=== PATIENT | male | born 1930 | race Caucasian/White ===

== ENCOUNTER 2018-06-02 16:06 | Inpatient (IN) ==
[2018-06-02] MEDS ORDERED: NS 1,000 ML IV ONE (16:32)
[2018-06-02] MEDS ORDERED: NS 1,000 ML ONE (16:34)
--- NOTE | 2018-06-02 16:39 | PROVIDER DOCUMENTATION ---
HPI-General Adult - General Chief Complaint: Altered Mental Status Stated Complaint: SHAKING ALL OVER? Time Seen by Provider: 06/02/18 16:10 Source: EMS (patient is not a reliable historian) Allergies/Adverse Reactions: Patient Allergies Allergy/AdvReac Type Severity Reaction Status Date / Time No Known Allergies Allergy Verified 06/02/18 21:06 Home Medications: Home Medication List Medication Instructions Recorded Confirmed Last Taken Type Aspirin EC 81 mg PO DAILY 04/15/17 06/02/18 06/02/18 08:00 History Levetiracetam 750 mg PO BID 04/15/17 06/02/18 06/02/18 20:00 History Memantine HCl 5 mg PO BID 04/15/17 06/02/18 06/02/18 20:00 History Metoprolol Succinate E.r. [Toprol 25 mg PO QAM 04/15/17 06/02/18 06/02/18 08:00 History Xl] Rivaroxaban [Xarelto] 20 mg PO HS 04/15/17 06/02/18 06/02/18 20:00 History Sennosides/Docusate Sodium 1 tab PO BID 04/15/17 06/02/18 06/02/18 20:00 History [Senna-S Tablet] Fluconazole [Diflucan] 100 mg PO DAILY #7 tab 04/25/17 Unknown Rx Tramadol [Ultram] 50 mg PO Q4H PRN PRN #30 tab 04/25/17 06/02/18 Unknown Rx Acetaminophen [Tylenol] 1 tab PO Q4HR PRN 06/02/18 06/02/18 Unknown History Ascorbic Acid [Vitamin C] 1 tab PO QAM 06/02/18 06/02/18 06/02/18 08:00 History Cholecalciferol (Vitamin D3) 1 tab PO QAM 06/02/18 06/02/18 06/02/18 08:00 History [Vitamin D3] Cyanocobalamin (Vitamin B-12) 1,000 mcg PO QAM 06/02/18 06/02/18 06/02/18 08:00 History [Vitamin B12] Docusate Sodium [Stool Softener] 1 cap PO DAILY PRN 06/02/18 06/02/18 Unknown History Fluticasone 50 Mcg Nasal [place] 1 - 2 sprays GELY QAM 06/02/18 06/02/18 06/02/18 08:00 History [Flonase] Furosemide [Lasix] 1 tab PO QAM 06/02/18 06/02/18 06/02/18 08:00 History Loperamide [Imodium] 2 cap PO DIRECTED PRN 06/02/18 06/02/18 Unknown History Magnesium Hydroxide [Milk of 30 ml PO DAILY PRN PRN 06/02/18 06/02/18 Unknown History Magnesia] Pantoprazole Sodium [Protonix] 40 mg PO QAM 06/02/18 06/02/18 06/02/18 08:00 History Potassium Chloride 1 tab PO QAM 06/02/18 06/02/18 06/02/18 08:00 History - History of Present Illness -Gen Adult Nature of Presenting Problems: 88 y/o elderly male patient with multiple medical problems , living in [facility] brought by EMS due to persistent shaking and altered mental status. Patient initially was noted to be hypotensive and with low O2 saturation in the 70s but oxygen was given via nasal canulla bringing it up to the mid 90s. Patient has been noted with significant diarrhea. He is apparently being worked up for ?hepatobiliary/pancreatic disorder. Patient is unable to offer any history Onset/Duration: reports: this morning Timing: reports: still present Associated Symptoms: reports: diarrhea, weakness, other (shaking) Review of Systems - Adult - REVIEW OF SYSTEMS - ADULT ROS:: unobtainable per condition Constitutional: reports: other (unable to obtain due to non verbal patient) Past History - Adult - PAST MEDICAL HISTORY-ADULT Review of Records: reports: Old Records Reviewed, Nursing Assessment Review, Medications Reviewed Cardiovascular: reports: A-Fib, pacemaker Respiratory: reports: pneumonia (1 month ago) Gastrointestinal: reports: other (reji esophagitis) Neurological: reports: dementia, Seizures/Epilepsy Other Conditions: reports: other (deconditioning) - PRIOR SURGERIES/PROCEDURES Surgical/Procedure History: reports: appendectomy, pacemaker - IMMUNIZATION STATUS Childhood Immunizations: See Nurse Assessment Flu Vaccine: See Nurse Assessment - FAMILY HISTORY Family History: reviewed, not pertinent Physical Exam-General - PHYSICAL EXAM-ADULT Initial Vital Signs Reviewed: Yes - CONSTITUTIONAL General Appearance: other (frail and ill looking, bedbound, non verbal) - EYES Eyes: scleral icterus - HEAD, EARS, NOSE, MOUTH & THROAT HENMT: normocephalic/atraumatic - NECK Neck: full range of motion, supple - RESPIRATORY Respiratory: decreased breath sounds, rales (mild bilaterally). negative: rhonchi, wheezing - CARDIOVASCULAR Cardiovascular: tachycardia. negative: regular rate, rhythm (irregular) - GASTROINTESTINAL (ABDOMEN) Abdominal Exam: soft. negative: mass - MUSCULOSKELETAL Extremity: swelling (minimal trace edema in lower extremities) - SKIN Integumentary: warm/dry, jaundice - NEUROLOGIC Neurologic: other (non verbal; resting tremors; opens eyes to command but apparently frail to move extremities) - PSYCHIATRIC Psych/Mental Status: disoriented x 3 Progress - PLAN OF CARE/RESULTS Progress/Plan/Lab Results: Orders Category Date Time Status Ventura Cath Insertion ORDERED Care 06/02/18 16:30 Ordered CHEST-PORTABLE [RAD] Stat Exams 06/02/18 16:28 Ordered BLOOD CULTURE [BLDCUL] Stat Lab 06/02/18 16:27 Uncollected CBC WITH ELECTRONIC DIFF [HEME] Stat Lab 06/02/18 16:27 Uncollected CK PROFILE [SP CHEM] Stat Lab 06/02/18 16:27 Uncollected COMPREHENSIVE METABOLIC PANEL [CHEM] Stat Lab 06/02/18 16:27 Uncollected INFLUENZA SCREEN A/B Stat Lab 06/02/18 16:27 Uncollected LACTATE, PLASMA [CHEM] Stat Lab 06/02/18 16:29 Uncollected LIPASE [CHEM] Stat Lab 06/02/18 16:28 Uncollected MAGNESIUM [CHEM] Stat Lab 06/02/18 16:28 Uncollected PRO B-NATRIURETIC PEPTIDE Stat Lab 06/02/18 16:28 Uncollected PT [PROTIME WITH INR] [COAG] Stat Lab 06/02/18 16:28 Uncollected PTT [COAG] Stat Lab 06/02/18 16:28 Uncollected TROPONIN T Stat Lab 06/02/18 16:28 Uncollected URINALYSIS W/POSS RFLX CULT [URINALYSIS] Stat Lab 06/02/18 16:28 Uncollected EKG [EKG] Stat Ther 06/02/18 16:27 Ordered Result Diagrams: 06/02/18 16:45 06/02/18 16:45 - REASSESSMENT Reassessment #1 Time Reassessed: 17:34 Status: improving (patient is currently oriented x 3 even though very frail; obeys commands and able to move all extremities;ROM of left shoulder is limited which is chronic; niece has power of erisa attorney and at bedside now; patient is a DNR/DNI) - XRAY 1 XRAY Study: Chest Impression: Abnormal (EXAM: CHEST-PORTABLE INDICATION: altered mental status TECHNIQUE: One view COMPARISON: 04/15/2017 FINDINGS: There is mild blunting of the right costophrenic angle that is similar to the previous study and probably represents pleural scarring. The atelectasis and/or infiltrate at the right lung base seen previously appears to have resolved. There is no definite pleural fluid collection or pneumothorax. The pacemaker is stable. The cardiomediastinal silhouette and central vasculature are essentially unremarkable, otherwise. IMPRESSION: No definite acute pathology by plain radiograph. Electronically signed by Darell Harding 06/02/2018 5:18 PM [id number] Interpreting Physician: Darell Harding MD Dictated Date/Time: 04/22 3741) - CT/MRI 1 CT Study: Abdomen, Pelvis Impression: Abnormal ( EXAM: CT ABD/PELVIS W/IV CONT ONLY INDICATION: sepsis ; jaundice; shock TECHNIQUE: This exam was performed using automated exposure control, adjustment of mA or kV according to patient size, and/or use of iterative reconstruction technique. COMPARISON: None. FINDINGS: There is a small right pleural effusion with adjacent right basilar atelectasis. There is intrahepatic and extrahepatic biliary dilatation. The gallbladder wall appears thickened and somewhat irregular. There is some stranding at the inferior aspect of the gallbladder and inferior tip of the liver. Cholecystitis cannot be excluded. The common bile duct is dilated up to the ampulla. No well-defined obstructing mass or stone can be identified with CT. However, many small ampullary lesions and ductal stones are not well visualized on CT. There is a complex lesion that medial and superior to the caudate lobe of the liver that has at least some cystic component. It appears to be causing mild mass effect on the vena cava. It measures up to 4.6 x 2.4 cm axially. It is nonspecific. There is no pancreatic ductal dilatation. No discrete pancreatic mass is appreciated. The spleen and adrenal glands are unremarkable. There are a few simple appearing renal cysts with the largest at the lower pole of left kidney. The kidneys are unremarkable, otherwise. There is a Ventura catheter in the urinary bladder and the bladder is nondistended. There is mild uncomplicated diverticulosis coli involving the sigmoid colon. There is a lower abdominal wall ventral hernia on the left. It contains a loop of the proximal sigmoid/ distal descending colon. It does not appear to be causing obstruction as the colon proximal to this is nondistended. There is no obstructive small bowel pattern. The remainder of the GI tract is essentially unremarkable. There is extensive aortoiliac atherosclerotic calcification. 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 There is multilevel degenerative arthropathy throughout the spine. IMPRESSION: 1.Thickened irregular gallbladder wall with mild stranding at the inferior aspect of the gallbladder and liver. Cholecystitis cannot be excluded. 2.Dilated intrahepatic and extrahepatic bile ducts. 3.Nonspecific complex cystic lesion at the medial aspect of the liver. 4.Low ventral abdominal wall hernia on the left containing a loop of the colon but no evidence of obstruction. 5.Other incidental/nonacute findings detailed above. Electronically signed by Darell Harding 06/02/2018 6:31 PM 06/02/18 1831 Interpreting Physician: Darell Harding MD Dictated Date/ Time: 06/02/181815) - CONSULTS/PCP/HOSPITALIST Notification #1 *Consult/PCP/Hospitalist*: Dr. Nielsen Time Discussed: 19:15 Consult Disposition: Admit Departure - Departure Date of Disposition Decision: 06/02/18 Time of Disposition Decision: 19:15 DIAGNOSIS: Hyperbilirubinemia, Cholecystitis, Cholangitis, Septic shock Sepsis Qualifiers: Sepsis type: sepsis due to unspecified organism Qualified Code(s): A41.9 - Sepsis, unspecified organism Disposition: ADMITTED INPATIENT 09 Certified Medical Emergency: Emergent Condition: Critical - Critical Care Note This patient required my direct & personal management of CC.: Yes Total Time (mins): 43 Critical Care Statement: This patient required my direct personal management to treat or rule out processes, the absence of which, could potentiallly result in sudden, clinically significant life or limb threatening deterioration. Attestation - Physician/ BESSY Attestation The physician spent face to face time with patient:: Yes Advanced Practice Provider documentation review:: Supervising physician onsite and consulted in the evaluation and care of this patient. The physician did have a face to face encounter with the patient.
[2018-06-02] MEDS ORDERED: TYLENOL PR ONE ×2 (16:44→16:58)
[2018-06-02] MEDS ORDERED: TYLENOL ONE (16:45)
[2018-06-02] MEDS ORDERED: ZOSYN 3.375 GM in NS 50 ML IV ONE (16:51)
[2018-06-02] MEDS ORDERED: VANCOMYCIN 1 GM/NS 1 GM/250 ML IVPB IV ONE (16:51)
[2018-06-02 17:12] LABS: BASO# 0.01 X1000 (0.0-0.2); BASO% 0.1 % (0.0-0.8); EOS# 0.01 X1000 (0.0-0.7); EOS% 0.1 % (0.0-10.0); HEMATOCRIT 30.7 % (42.0-52.0); HEMOGLOBIN 9.9 g/dL (14.0-18.0); IMM GRAN# 0.05 X1000 (0.0-0.04); IMM GRAN% 0.5 % (0.0-0.5); LYMPH# 0.37 X1000 (1.2-3.4); LYMPH% 3.7 % (20.5-51.1); MCH 30.7 PG (27-31); MCHC 32.2 g/dL (33-37); MCV 95.3 FL (81-99); MPV 13.2 FL (7.4-10.4); NEUT% 91.6 % (42.2-75.2); PLT 222 X1000 (130-400); RBC 3.22 XMIL (4.7-6.1); RDW 15.1 % (11.5-14.5); WBC 10.04 X1000 (4.8-10.8)
[2018-06-02 17:14] LABS: INR 1.46; PROTIME 18.8 Seconds (11.0-16.0); PTT 31.2 Seconds (22.3-41.8)
--- NOTE | 2018-06-02 17:21 | Diag Imaging Result Doc PS360 ---
EXAM: CHEST-PORTABLE INDICATION: altered mental status TECHNIQUE: One view COMPARISON: 04/15/2017 FINDINGS: There is mild blunting of the right costophrenic angle that is similar to the previous study and probably represents pleural scarring. The atelectasis and/or infiltrate at the right lung base seen previously appears to have resolved. There is no definite pleural fluid collection or pneumothorax. The pacemaker is stable. The cardiomediastinal silhouette and central vasculature are essentially unremarkable, otherwise. IMPRESSION: No definite acute pathology by plain radiograph. Electronically signed by Darell Harding 06/02/2018 5:18 PM
[2018-06-02 17:24] LABS: URINE SOURCE CATH
[2018-06-02 17:26] LABS: ALB/GLOB RATIO 0.8; ALBUMIN 2.8 g/dL (3.5-5.0); CALCIUM 8.8 mg/dL (8.8-10.2); CREATININE 1.2 mg/dL (0.7-1.2); MAGNESIUM 1.3 mg/dL (1.5-2.7); POTASSIUM 4.1 mmol/L (3.5-5.1); TOTAL BILIRUBIN 4.9 mg/dL (0.20-1.00); TOTAL PROTEIN 6.2 g/dL (6.3-8.3)
[2018-06-02 17:26] LABS: BILIRUBIN URINE SMALL (NEGATIVE); BLOOD URINE SMALL (NEGATIVE); COLOR YELLOW; GLUCOSE URINE NEGATIVE (NEGATIVE); KETONE URINE NEGATIVE (NEGATIVE); LEUKOCYTES URINE NEGATIVE (NEGATIVE); NITRITE URINE NEGATIVE (NEGATIVE); PROTEIN URINE 50 mg/dL (NEGATIVE); SP GRAVITY URINE 1.016; TURBIDITY URINE HAZY (CLEAR); UROBILINOGEN URINE >12 mg/dL (NORMAL)
[2018-06-02 17:31] LABS: UR EPITHELIAL CELLS >10 /HPF (<10); URINE BACTERIA NEGATIVE /HPF
[2018-06-02 17:43] LABS: URINE CASTS NONE SEEN
[2018-06-02 17:44] LABS: URINE SMALL ROUND CELLS TRANS PRESENT
[2018-06-02] MEDS: NS 1,400 ML IV ONE ×2 (17:46→19:48)
--- NOTE | 2018-06-02 18:33 | Diag Imaging Result Doc PS360 ---
EXAM: CT ABD/PELVIS W/IV CONT ONLY INDICATION: sepsis; jaundice; shock TECHNIQUE: This exam was performed using automated exposure control, adjustment of mA or kV according to patient size, and/or use of iterative reconstruction technique. COMPARISON: None. FINDINGS: There is a small right pleural effusion with adjacent right basilar atelectasis. There is intrahepatic and extrahepatic biliary dilatation. The gallbladder wall appears thickened and somewhat irregular. There is some stranding at the inferior aspect of the gallbladder and inferior tip of the liver. Cholecystitis cannot be excluded. The common bile duct is dilated up to the ampulla. No well-defined obstructing mass or stone can be identified with CT. However, many small ampullary lesions and ductal stones are not well visualized on CT. There is a complex lesion that medial and superior to the caudate lobe of the liver that has at least some cystic component. It appears to be causing mild mass effect on the vena cava. It measures up to 4.6 x 2.4 cm axially. It is nonspecific. There is no pancreatic ductal dilatation. No discrete pancreatic mass is appreciated. The spleen and adrenal glands are unremarkable. There are a few simple appearing renal cysts with the largest at the lower pole of left kidney. The kidneys are unremarkable, otherwise. There is a Ventura catheter in the urinary bladder and the bladder is nondistended. There is mild uncomplicated diverticulosis coli involving the sigmoid colon. There is a lower abdominal wall ventral hernia on the left. It contains a loop of the proximal sigmoid/distal descending colon. It does not appear to be causing obstruction as the colon proximal to this is nondistended. There is no obstructive small bowel pattern. The remainder of the GI tract is essentially unremarkable. There is extensive aortoiliac atherosclerotic calcification. 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 There is multilevel degenerative arthropathy throughout the spine. IMPRESSION: 1.Thickened irregular gallbladder wall with mild stranding at the inferior aspect of the gallbladder and liver. Cholecystitis cannot be excluded. 2.Dilated intrahepatic and extrahepatic bile ducts. 3.Nonspecific complex cystic lesion at the medial aspect of the liver. 4.Low ventral abdominal wall hernia on the left containing a loop of the colon but no evidence of obstruction. 5.Other incidental/nonacute findings detailed above. Electronically signed by Darell Harding 06/02/2018 6:31 PM
[2018-06-02] MEDS ORDERED: NS 500 ML ONE (19:44)
[2018-06-02] MEDS ORDERED: TYLENOL PO PRN (20:15)
[2018-06-02] MEDS ORDERED: ZOFRAN IV PRN (20:15)
[2018-06-02] MEDS ORDERED: LEVOPHED 8 MG in D5 1/2 NS 250 ML IV SCH (20:30)
[2018-06-02] MEDS: NS 1,000 ML IV SCH (21:29)
[2018-06-02] MEDS: ZOSYN 2.25 GM in NS 50 ML IV SCH (21:30)
[2018-06-02] MEDS: ZYVOX 600 MG/D5W 600 MG/300 ML IVPB IV SCH (22:13)
[2018-06-02] MEDS ORDERED: MAGNESIUM SULFATE 2 GM/S.W.I. 2 GM/50 ML IVPB IV ONE (22:58)
--- NOTE | 2018-06-02 23:46 | HISTORY AND PHYSICAL ---
PRIMARY CARE PROVIDER: Kristel Bolton. CHIEF COMPLAINT: Fever. HISTORY OF PRESENT ILLNESS: Mr. Louis is a pleasant 88-year-old male who comes in tonight with some altered mental status. However, he was alert and oriented to person, place and situation, disoriented to time. His family was at bedside very attentive. Apparently, the patient lives at [facility]. He had gone at lunchtime with a family member to see his primary care provider. They had lunch and he went back to [place]. Sometime after that, he developed a temperature of around 105. This was subjective. When EMS arrived, he was having altered mental status with persistent shaking. He was hypotensive with a low oxygen saturation but it did go up to mid 90s with O2 per nasal cannula. He has had significant diarrhea over the last 24 hours. This is a new occurrence. From what I understand, he is being worked up for hepatobiliary pancreatic disorder. They were not able to give very much more information. The patient does have a past medical history of essential hypertension, paroxysmal atrial fibrillation, hyperlipidemia, seizure disorder and sick sinus syndrome status post pacemaker implantation. On arrival to the emergency room, he was noted to be febrile with a temperature maximum of 101.6, tachycardic and hypotensive. Fluid resuscitation was started in the emergency room. CT scan of his abdomen and pelvis was obtained. It did show a thickened, irregular gallbladder wall with stranding. Cholecystitis could not be excluded and showed dilated intrahepatic and extrahepatic bile ducts. The patient's total bilirubin was 4.90 with elevated AST and ALT. The patient will be admitted inpatient to the ICU for further evaluation and treatment. PAST MEDICAL HISTORY: See HPI. PREVIOUS SURGICAL HISTORY: 1. Pacemaker implantation. 2. Appendectomy. SOCIAL HISTORY: Lives at [place]. No tobacco, alcohol or illicit drugs. FAMILY HISTORY: I attempted to review the family history with the patient and family. This could not be obtained at this time. ALLERGIES: No known drug allergies. HOME MEDICATIONS: A list of home medications has not been reconciled. An order was placed for Nursing to reconcile home medications. These will be restarted when appropriate. REVIEW OF SYSTEMS: Fourteen point review of systems conducted with the patient. Pertinent positives listed above in the HPI. All other systems reviewed and found to be negative. PHYSICAL EXAMINATION: VITAL SIGNS: Temperature 99.8, pulse 94, respirations 23, blood pressure 93/50, oxygen saturation 94% on 2 L nasal cannula. GENERAL: Pleasant 88-year-old male visibly jaundiced lying in the ER stretcher. He is oriented to person, place and situation, disoriented to time. Family at bedside very attentive. HEENT: Head is atraumatic, normocephalic. Pupils equal, round, reactive to light. Right eye amblyopia noted. Extraocular eye movements otherwise intact. Sclerae are jaundiced. Conjunctiva is mildly pale. Oral mucosa is dry and tacky. NECK: Supple. No JVD. No thyromegaly. Trachea is midline. No cervical lymphadenopathy. CARDIAC: S1, S2 appreciated. No murmurs, gallops, or rubs. LUNGS: Decreased bilaterally. Fine crackles noted in bilateral bases. Symmetric rise and fall with respirations. No rhonchi. No wheezing. ABDOMEN: Protuberant, soft, nondistended, nontender. Bowel sounds present all 4 quadrants, normoactive. No pulsatile mass. No organomegaly. EXTREMITIES: No clubbing, cyanosis, or edema. One-plus pedal pulses bilaterally. GENITOURINARY: No bladder distention. Otherwise deferred. INTEGUMENTARY: Jaundiced. No acute rash or lesions noted. It is otherwise warm, dry, intact. NEUROLOGICAL: Alert and oriented times 3, disoriented to time. No focal motor deficits. Otherwise nonfocal examination. DIAGNOSTIC DATA: CT of his abdomen and pelvis showed a thickened, irregular gallbladder wall with mild stranding. Cholecystitis cannot be excluded. Dilated intrahepatic and extrahepatic bile ducts. LABORATORY DATA: WBC 10.04. Hemoglobin 9.9. Hematocrit 30.7. Platelet count 222. INR 1.46. Sodium 136. Potassium 4.1. Chloride 99. Carbon dioxide 21. BUN 27. Creatinine 1.2. Glucose 109. AST 129. ALT 114. Total bilirubin 4.90. Magnesium 1.3. Urine unremarkable. ASSESSMENT AND PLAN: 1. Suspected cholecystitis. We will start patient on Zosyn and Zyvox. The patient does not have an elevated white blood cell count but he does have presumed infection. We will continue these antibiotics and wait for pending blood cultures. We will consult General Surgery. 2. Septic shock secondary to number 1. Patient remains hypotensive after bolusing. We will continue normal saline. Start patient on Levophed. Place him in ICU. 3. Fluid volume depletion secondary to 1 and 2. Continue normal saline. Strict I's and O's. 4. Hypomagnesemia. Two grams of magnesium. Recheck laboratory data. 5. Seizure disorder. We will continue home medications when reconciled. 6. Atrial fibrillation. We will continue rate control medications and blood thinners if applicable when patient's home medications are placed in the computer. Further recommendations per patient clinical course. CRITICAL CARE TIME: 30 minutes. Dictated by GENOVEVA Chaves for Shlomo Nielsen MD cc: GENOVEVA Chaves MD Alicia L. Hamman, CRNP
[2018-06-03] MEDS: ZOSYN 2.25 GM in NS 50 ML IV SCH ×5 (00:47→22:48)
--- NOTE | 2018-06-03 04:04 | HISTORY AND PHYSICAL ---
ADDENDUM: Patient seen and examined by myself. Full note dictated and discussed with nurse practitioner. Patient currently lives in assisted living. He has seen Dr. De Anda for presumed gallbladder disease and a questionable mass in his pancreas. He has a CT scheduled for next week. Saw Dr. De Anda today actually and he was fine. Unfortunately, after going home at some point he started developing fevers that have gone up to 105. He was sent to the ER from assisted living. The patient is also been noted to have elevated bilirubin and jaundice for the past several weeks. We will admit him to the hospital. He currently is diagnosed with severe sepsis and septic shock as his blood pressures are low. We will place him on antibiotics, IV fluids, consult Surgery and we will follow. Patient is DNR level 2. cc: Shlomo Nielsen MD
[2018-06-03] MEDS: NS 1,000 ML IV SCH ×3 (05:28→20:47)
[2018-06-03 06:07] LABS: BASO# 0.01 X1000 (0.0-0.2); BASO% 0.1 % (0.0-0.8); EOS# 0.03 X1000 (0.0-0.7); EOS% 0.2 % (0.0-10.0); HEMATOCRIT 28.8 % (42.0-52.0); HEMOGLOBIN 9.1 g/dL (14.0-18.0); IMM GRAN# 0.04 X1000 (0.0-0.04); IMM GRAN% 0.3 % (0.0-0.5); LYMPH# 0.79 X1000 (1.2-3.4); LYMPH% 5.4 % (20.5-51.1); MCH 30.3 PG (27-31); MCHC 31.6 g/dL (33-37); MONO# 1.18 X1000 (0.11-0.59); MONO% 8.1 % (1.7-9.3); MPV 13.1 FL (7.4-10.4); NEUT# 12.45 X1000 (1.4-6.5); NEUT% 85.9 % (42.2-75.2); PLT 180 X1000 (130-400); RDW 15.2 % (11.5-14.5)
[2018-06-03 06:19] LABS: CALCIUM 7.7 mg/dL (8.8-10.2); CREATININE 1.2 mg/dL (0.7-1.2); MAGNESIUM 2.1 mg/dL (1.5-2.7); POTASSIUM 4.1 mmol/L (3.5-5.1)
[2018-06-03] MEDS: ZYVOX 600 MG/D5W 600 MG/300 ML IVPB IV SCH ×2 (08:13→20:47)
--- NOTE | 2018-06-03 10:07 | PROGRESS NOTE ---
DATE: 06/03/2018 SUBJECTIVE: Mr. Louis was currently living in assisted living. He had seen Dr. De Anda for possible gallbladder disease and questionable mass in his pancreas. CT was scheduled for next week. Developed a fever of 105. He had abdominal and pelvic CT done which showed: 1. Thickened irregular gallbladder with mild stranding in the inferior aspect of the gallbladder and liver. Cholecystitis could not be excluded. 2. Dilated intrahepatic and extrahepatic bile ducts. 3. Nonspecific complex cystic lesion in the medial aspect of the liver. 4. Low ventral abdominal wall hernia in the left containing a loop of colon, but no evidence of obstruction. OBJECTIVE: General: He is awake this morning, afebrile. Vital Signs: Temperature is 97.6 degrees, pulse 64, respirations 15, blood pressure 145/63. Eyes: Pupils are equal and round. Lungs: Clear in all lung ardon anterolateral. Cardiovascular exam: Regular rhythm and rate without murmur or S3. Abdomen: Nontender, nondistended. Extremities: No pedal edema. LABS: White count yesterday was 10,000; today is 14,500. Hematocrit is 28 and hemoglobin of 9.1, platelet count is 180,000. Sodium 140, potassium 4.1, chloride 110. BUN 26, creatinine 1.2. His AST when he presented was 129, ALT 114, alkaline phosphatase was 723. ProBNP was 3967. Pro time is 18.8, PTT was 31. Urinalysis unremarkable. X-RAYS: Chest x-ray: No definite acute pathology. ASSESSMENT AND PLAN: 1. Suspect cholecystitis. We have him on Zosyn and Zyvox. Patient's white count is elevated this morning. He is afebrile. There is some concern about possible liver mass as well, and possibly even some pancreatic obstruction. 2. Septic shock secondary to #1. Continue intravenous fluids. 3. Appeared to have volume depletion, so continue normal saline. 4. Hypomagnesemia, supplement magnesium. 5. History of seizure disorder. Continue his home medicines. 6. Atrial fibrillation. His rate has been controlled. Review of his orders: Getting Zosyn 2.25 g q. 6 hours, linezolid 600 mg q. 12 hours. His renal function: Creatinine 1.2. Electrolytes look good. cc: Ben Last MD
[2018-06-03 11:06] LABS: AGAP 11; ALB/GLOB RATIO 0.8; ALBUMIN 2.5 g/dL (3.5-5.0); ALKALINE PHOSPHATASE 552 U/L (32-122); BUN 22 mg/dL (8-22); CALCIUM 8.3 mg/dL (8.8-10.2); CHLORIDE 111 mmol/L (98-107); COSMO 293; GLUCOSE 122 mg/dL (70-104); GOT 73 U/L (10-34); GPT 91 U/L (10-44); POTASSIUM 3.4 mmol/L (3.5-5.1); SODIUM 145 mmol/L (136-145); TCO2 23 mmol/L (25-35); TOTAL BILIRUBIN 2.57 mg/dL (0.20-1.00); TOTAL PROTEIN 5.5 g/dL (6.3-8.3)
--- NOTE | 2018-06-03 13:27 | GENERAL SURGERY CONSULTATION ---
DATE: 06/03/2018 REQUESTING PHYSICIAN: The hospitalist. REASON FOR CONSULTATION: Consult is concerning possible cholecystitis. HISTORY OF PRESENT ILLNESS: 88-year-old male who was initially brought in for altered mental status from a care home. He had been seen by my partner, Dr. De Anda for elevated bilirubin, dilated common bile duct in the potential for a pancreatic mass. He has essentially been about the same but his labs have worsened with his bilirubin going up. He had a CT scan that showed possibility of cholecystitis, dilated common bile duct, but the patient is not reporting any abdominal pain at this point. Given these findings I was asked to weigh an opinion. PAST MEDICAL HISTORY: Hypertension, paroxysmal atrial fibrillation, hyperlipidemia, seizure disorder, sick sinus syndrome. PAST SURGICAL: Pacemaker placement, appendectomy. SOCIAL HISTORY: Lives at [facility]. FAMILY HISTORY: Difficult to obtain. ALLERGIES: None. HOME MEDICATIONS: Reviewed. It does not look like he is on any active blood thinners. REVIEW OF SYSTEMS: A full 10 point review of systems obtained negative as specified in HPI. PHYSICAL EXAMINATION: Vital Signs: Patient is currently afebrile, blood pressure is 132/64, pulse 71, O2 saturation 99%. General: No acute distress, alert, interactive male, looks stated age. HEENT: Normocephalic, atraumatic. Pupils equal, round, reactive to light. Mucous membranes moist. Oropharynx benign. There is some scleral icterus noted. Neck: Supple. Trachea midline. Cardiovascular: Regular rate and rhythm. Lungs: Grossly clear. Abdomen: Soft, nontender, nondistended. Extremities: Moves all extremities. Neurologic: Grossly intact. Skin: Some mild jaundice. Vascular: All extremities perfused. LABORATORY: White blood cell count 14, hematocrit 28, platelet count 188,000. Of note, yesterday his bilirubin was 4.9, AST, ALT and alkaline phosphatase were all elevated. CT scan independently reviewed and radiology report reviewed. ASSESSMENT/PLAN: 88-year-old with possible cholecystitis, altered mental status. 1. Possible cholecystitis. At this time patient is nontender. He has had previous ultrasound that showed dilated common bile duct and elevated liver enzymes. It might be worthwhile to consider once he is stabilized getting a HIDA scan. At this point, I would like to reviewed Dr. De Anda's notes from the office to see what the concern about a pancreatic mass is and will follow up with that and make further recommendations. cc: Jasper Go MD
[2018-06-04] MEDS: NS 1,000 ML IV SCH ×4 (03:39→23:04)
[2018-06-04] MEDS: ZOSYN 2.25 GM in NS 50 ML IV SCH ×4 (04:29→22:56)
[2018-06-04 05:02] LABS: BASO# 0.02 X1000 (0.0-0.2); BASO% 0.2 % (0.0-0.8); EOS# 0.05 X1000 (0.0-0.7); EOS% 0.5 % (0.0-10.0); HEMATOCRIT 28.3 % (42.0-52.0); HEMOGLOBIN 8.9 g/dL (14.0-18.0); IMM GRAN# 0.07 X1000 (0.0-0.04); IMM GRAN% 0.7 % (0.0-0.5); LYMPH# 0.62 X1000 (1.2-3.4); LYMPH% 5.8 % (20.5-51.1); MCH 30.2 PG (27-31); MCHC 31.4 g/dL (33-37); MCV 95.9 FL (81-99); MONO# 0.89 X1000 (0.11-0.59); MONO% 8.4 % (1.7-9.3); MPV 13.1 FL (7.4-10.4); NEUT# 8.97 X1000 (1.4-6.5); NEUT% 84.4 % (42.2-75.2); PLT 225 X1000 (130-400); RBC 2.95 XMIL (4.7-6.1); RDW 15.1 % (11.5-14.5); WBC 10.62 X1000 (4.8-10.8)
[2018-06-04 05:19] LABS: AGAP 12; ALB/GLOB RATIO 0.7; ALBUMIN 2.4 g/dL (3.5-5.0); ALKALINE PHOSPHATASE 479 U/L (32-122); BUN 17 mg/dL (8-22); CALCIUM 8.2 mg/dL (8.8-10.2); CHLORIDE 111 mmol/L (98-107); COSMO 288; CREATININE 0.9 mg/dL (0.7-1.2); ESTIMATED GFR > 60; GLUCOSE 90 mg/dL (70-104); GOT 41 U/L (10-34); GPT 67 U/L (10-44); SODIUM 144 mmol/L (136-145); TCO2 21 mmol/L (25-35); TOTAL BILIRUBIN 1.87 mg/dL (0.20-1.00)
[2018-06-04 05:43] LABS: FREE T4 1.09 ng/dL (0.93-1.70); TSH 2.55 uIUmL (0.27-4.20)
--- NOTE | 2018-06-04 07:20 | GENERAL SURGERY PROGRESS NOTE ---
DATE: 06/04/2018 SUBJECTIVE: The patient is not reporting any kind of pain at the moment. I discussed this case with Dr. De Anda and he will see the patient again tomorrow. OBJECTIVE: Vital Signs: The patient is currently afebrile. His vital signs are stable. General Examination: No acute distress. HEENT: Normocephalic, atraumatic. Pupils equal, round, reactive to light. Mucous membranes moist. Oropharynx benign. Neck: Supple. Trachea midline. Cardiovascular: Regular rate and rhythm. Lungs: Grossly clear. Abdomen: Soft, nontender, nondistended. Extremities: Moves all extremities. Neurologic: Grossly intact. Skin: No signs of jaundice. Vascular: All extremities perfused. Laboratory: White blood cell count is down to 10, hematocrit 28, platelet count 225,000. His bilirubin is 1.87, AST and ALT 41 and 67, alkaline phosphatase 479. ASSESSMENT/PLAN: An 88-year-old with a dilated common bile duct and possible cholecystitis, with altered mental status. Possible cholecystitis. At this time, the patient is nontender. He has had these periods where his liver function tests go up and down. It may be worthwhile to get an MRI or even a HIDA scan to see if he is actively obstructed. I reviewed Dr. De Anda's note from the office. He does not actively have any signs of a pancreatic mass on any of his notes so I am unsure of where this came from. Dr. De Anda will be back tomorrow and will further evaluate the patient. cc: Jasper Go MD
[2018-06-04] MEDS ORDERED: POTASSIUM CHLORIDE 20% LIQUID PO ONE (07:33)
[2018-06-04] MEDS: ZYVOX 600 MG/D5W 600 MG/300 ML IVPB IV SCH ×2 (07:43→20:37)
--- NOTE | 2018-06-04 07:49 | PROGRESS NOTE ---
DATE: 06/04/2018 HISTORY: Patient currently was living in assisted living. Dr. De Anda had been following him for possible gallbladder disease and a questionable mass in the pancreas which we really have not found any evidence of mass in the pancreas. The liver enzymes, transaminases were slightly elevated. Followed by [facility]. Came in with altered mental status but when they saw him, he was alert and oriented to person, place, and situation, disoriented at home apparently. He is [facility]. At lunchtime, family members came to see him, the primary provider, and had lunch. Went back to [facility]. Sometime after that, temperature was 105 degrees. EMS arrived. Having altered mental status, persistent shaking, hypotensive, low oxygen saturation, significant diarrhea. Had workup for hepatobiliary, pancreatic disorder. We have not done an MRI or ERCP. The patient has a history of essential hypertension, paroxysmal atrial fibrillation, hyperlipidemia, seizure disorder, and sick sinus syndrome, status post pacemaker. They noted he was febrile on arrival at 101.6. CT of the abdomen and pelvis obtained, showed thickened irregular gallbladder with stranding. Cholecystitis could not be excluded so he was admitted to the hospital. AST and ALT were elevated. On exam today, he feels much better and he is requesting some food. We will start him on full liquids. PHYSICAL EXAMINATION: Temperature 98.8 degrees, pulse 85, respirations 28, blood pressure 157/76. Pupils are equal and round. Lungs are clear in all lung ardon. Cardiovascular Examination: Regular rhythm and rate without murmur or S3. Urine output 1700 mL. LABORATORY DATA: White count 10,620, hematocrit 28, platelet count 225,000. Sodium 144, potassium 3.0, chloride 111, BUN is 17, creatinine 0.9. Transaminases seem to be coming down. Review again of abdominal CT, thick and irregular gallbladder wall with mild stranding, inferior aspect of the gallbladder. Cholecystitis cannot be excluded. Dilated intrahepatic and extrahepatic bile ducts, nonspecific complex cystic lesion in the medial aspect of the liver, and ventral abdominal wall hernia on the left containing a loop of colon but no evidence of obstruction. ASSESSMENT AND PLAN: 1. There is possibility he could have passed some gallstones, possible cholecystitis. He is on Zosyn and Zyvox. Liver enzymes seemed to be doing better. Clinically, he is better. Nausea has resolved. We will try a full liquid diet. 2. Septic shock secondary to #1. This is better. Continue present antibiotics. 3. Volume depletion. Continue normal saline, supplement. 4. Supplement his potassium and magnesium as needed. 5. History of seizure disorder. Continue his home medication. 6. Atrial fibrillation. Rate appears controlled. 7. We will continue conservative measures. I think the family's desire and the patient's desire is no code. He would like to go on hospice so we will not pursue MRI or endoscopic retrograde cholangiopancreatography at this point. Clinically improving. We will advance his diet. I have discussed with family. cc: Ben Last MD
[2018-06-04] MEDS ORDERED: NS 500 ML IV ONE (14:27)
[2018-06-05] MEDS: ZOSYN 2.25 GM in NS 50 ML IV SCH ×4 (05:29→23:09)
[2018-06-05] MEDS: NS 1,000 ML IV SCH ×4 (05:29→22:05)
[2018-06-05] MEDS: ZYVOX 600 MG/D5W 600 MG/300 ML IVPB IV SCH ×2 (08:53→19:29)
[2018-06-05] MEDS ORDERED: SENSORCAINE-MPF 0.5%/EPI 1:200,000 ONE (10:46)
[2018-06-05] MEDS ORDERED: LR 1,000 ML ONE (10:47)
[2018-06-05] MEDS ORDERED: SODIUM CHLORIDE 0.9% ONE (10:53)
[2018-06-05] MEDS ORDERED: QUELICIN (DOSE) ONE (11:30)
[2018-06-05] MEDS ORDERED: DIPRIVAN 1% ONE (11:30)
[2018-06-05] MEDS ORDERED: FENTANYL ONE (11:30)
[2018-06-05] MEDS ORDERED: XYLOCAINE-MPF 2% ONE (11:30)
[2018-06-05] MEDS ORDERED: ROBINUL ONE ×2 (11:30→13:14)
--- NOTE | 2018-06-05 11:37 | GENERAL SURGERY PROGRESS NOTE ---
DATE: 06/05/2018 SUBJECTIVE: The patient denies fever, chills, nausea/vomiting, abdominal pain, chest pain, or other systemic complaints. OBJECTIVE: Vital signs: He is afebrile, somewhat hypertensive with blood pressures in the 160s to 170 systolic, pulse is 80s to 90s, O2 saturation 97%. Output: Urine output 800 mL last night. General: He is awake, alert, oriented x3. No acute distress. Cardiovascular: Regular rate and rhythm. Respiratory: No work of breathing. Gastrointestinal: Soft, nontender, nondistended. LABORATORY: White blood cell count 10, hemoglobin 8.9, hematocrit 28. Electrolytes reviewed and notable for potassium of 3. Total bilirubin 1.9, AST 41, ALT 67, alkaline phosphatase 479. IMAGING: The CT of abdomen and pelvis from 3 days ago was reviewed. ASSESSMENT AND PLAN: An 88-year-old male with jaundice, elevated liver function tests, recent fever and hypotension, and gram-negative darrin bacteremia with imaging showing a thickened inflamed gallbladder and gallstones. Therefore, I believe he has acute cholecystitis with possible intermittent cholangitis. This has improved some with antibiotics and IV fluids over the weekend, but I think he would benefit from cholecystectomy and a cholangiogram evaluation of the bile duct. I discussed this with the patient and his family, including the risks of bleeding, infection, injury to surrounding organs such as the intestines or bile duct, pneumonia, DVT, perioperative cardiac complications, and other imponderables. They understand and appear agreeable to surgery. We have set this up for tomorrow, and I have communicated with Dr. Last. cc: Miguel De Anda MD
--- NOTE | 2018-06-05 12:05 | PROGRESS NOTE ---
DATE: 06/05/2018 SUBJECTIVE: Mr. Louis is awake and alert. His son was at the bedside. He feels much better, no complaints. OBJECTIVE: Vital signs: Temperature 98.5 degrees, pulse 89, respirations 25, blood pressure 162/93. Eyes: Pupils are equal and round. Lungs: Clear in all lung ardon. Cardiovascular: Regular rhythm and rate without murmur or S3. Output: Urine output is 1300 mL. ASSESSMENT AND PLAN: 1. Presented with fever, mild. We have been following his elevation of transaminase and his gallbladder appears thick and so I do think he will benefit from a cholecystectomy so that is the plan tomorrow is laparoscopic cholecystectomy .family would like to pursue comfort measures so no further studies planned at this time. 2. Septic shock when he presented. This is better. 3. Volume depletion, resolved. 4. We have supplemented his potassium and magnesium. 5. History of seizure disorder. He is on his medication. 6. Atrial fibrillation. Rate is controlled and predominantly appears to be sinus rhythm, I believe. 7. Review of his medications. His urine output did diminish a little bit so I gave him a 500 mL normal saline bolus and increase his fluids to normal saline at 125 mL an hour. We have him on Zosyn 2.25 g IV q.6 h. and linezolid 600 mg IV q.12 h. LABORATORY DATA: Review of lab from this morning: White count 10,620, hematocrit 28, platelet count 225,000. Sodium 144, potassium 3.0, chloride 111, BUN 17, creatinine 0.9. Transaminases have come down, AST from 73 to 41 and ALT 91 to 67, alkaline phosphatase 552 to 479. cc: Ben Last MD
[2018-06-05] MEDS ORDERED: ZOFRAN ONE (12:11)
[2018-06-05] MEDS ORDERED: DECADRON ONE (12:11)
[2018-06-05] MEDS ORDERED: ZEMURON ONE ×2 (12:19→13:40)
[2018-06-05] MEDS ORDERED: NEOSTIGMINE ONE (13:14)
[2018-06-05] MEDS ORDERED: OFIRMEV 1000 MG/ISOTONIC SOLN 1,000 MG/100 ML BOTTLE ONE (13:16)
--- NOTE | 2018-06-05 14:16 | Diag Imaging Result Doc PS360 ---
EXAM: OPERATIVE CHOLANGIOGRAM 06/05/2018 HISTORY: GALLBLADDER DX TECHNIQUE: Intraoperative cholangiogram two views COMMENT: The common bile duct appears to be distended. There is narrowing of the distal centimeter or so of the duct which may be due to spasm at the sphincter. No definite filling defects are present and there is no evidence of obstruction as there is contrast in the duodenum. IMPRESSION: No evidence of retained stones. Electronically signed by Andres Schmitz 06/05/2018 2:14 PM
[2018-06-05] MEDS: MORPHINE IV PRN ×2 (16:00→21:34)
[2018-06-05] MEDS ORDERED: SODIUM CHLORIDE 0.9% INJ SCH (16:45)
--- NOTE | 2018-06-05 19:25 | OPERATIVE NOTE ---
PROCEDURE DATE: 06/05/2018 PREOPERATIVE DIAGNOSIS: Acute cholecystitis. POSTOP DIAGNOSIS: Acute cholecystitis. SURGEON: Miguel De Anda MD PATTERNMAKER ALL AROUND: Arturo Boudreaux MD 2ND PATTERNMAKER ALL AROUND: David Purvis, MS 4. ANESTHESIA: General. PROCEDURE: Laparoscopic converted to open cholecystectomy with operative cholangiogram. ESTIMATED BLOOD LOSS: 30 mL. COMPLICATIONS: None apparent. SPECIMENS: Gallbladder. FINDINGS: The gallbladder was acutely inflamed. The cholangiogram revealed dilated intra and extrahepatic bile ducts but without an intraluminal filling defect. There was some narrowing of the proximal cystic duct in the ampulla but it was unclear if this was due to a true extraluminal mass effect. In any case it was not obstructive. There was plenty of contrast entering the duodenum. DRAINS: One #19 Deo. TECHNIQUE: The patient was brought to the operating room and placed supine on the table. General anesthesia was induced. He was prepped and draped in usual sterile fashion. 0.5% Marcaine with epinephrine was used to anesthetize our incisions. An 11 mm incision was made just above the umbilicus in the midline. The fascia was exposed and incised sharply. Entry into the peritoneal cavity was obtained under direct vision with the Optiview device. Pneumoperitoneum was established. The camera was inserted. There was no evidence of injury to underlying structures. He was placed in reverse Trendelenburg and left rotation. Three 5 mm incision ports were placed across the epigastrium and right upper quadrant under direct vision per usual routine. There were quite a few adhesions of the pericolic fat and omentum to the gallbladder. These were taken down with scissors and cautery to expose the dome of the gallbladder. The dome of the gallbladder was then grasped with an Allis clamp and as I lifted it up the dome of the gallbladder tore. However I was able to grasp the wall of the gallbladder with a bulldog clamp and was able to successfully get some cephalad retraction. I then began working on taking down more omental adhesions. It also became apparent that the pyloric region of the stomach was significantly adherent to the wall of the gallbladder. I then continued to tediously push away the pylorus from the gallbladder using Kittner dissectors and the blunt tip of a suction probe. The infundibulum of the gallbladder was full of stones, there appeared to be intense inflammatory process involving the triangle of Calot making dissection difficult. I worked for a while trying to expose the critical view carefully using blunt dissection mainly and eventually I decided that further dissection was impossible in a safe fashion laparoscopically. Therefore, we converted to an open procedure. I made a oblique right upper quadrant incision between our port sites with a knife and carried down through the subcutaneous tissue and fascia with cautery and entered the peritoneal cavity safely. The [place] retractor was placed. I then began taking down the gallbladder in a top-down or dome- down fashion using cautery. This brought me down to the triangle of Calot structures where I was able to use a Kittner dissector, a right angle clamp and a hemostat to more delicately dissect out these structures and we eventually obtained a good critical view and Dr. Boudreaux was present and assisting me at this point. He was very helpful with exposure, retraction, and identifying the critical structures as well as eventual closure. As I said, the critical view was established or at least there were only 2 structures entering the gallbladder and the gallbladder had already been removed from the liver bed. The anterior structure was cut into and we verified that it was the cystic artery. It was tied proximally with silk tie and distally it was clipped. Then the cystic duct was manipulated. I made a ductotomy with scissors. A taut cholangiogram catheter was passed into the cystic duct. A clip held it in place. We performed a cholangiogram with findings as noted above. The clip was removed as well as the catheter. I then tied the proximal cystic duct with two 2-0 silk free ties. It was divided distal to these with scissors and the gallbladder was removed from the field. I inspected the dissection area including the duodenum, colon, pyloric region of the stomach and liver bed. There was no signs of any injury. There was no bleeding. We irrigated with saline and suctioned out the old blood and irrigation. I then brought in a 19 Deo drain through the right lateral port site and laid it adjacent to our cystic duct and cystic artery stumps. It was anchored to the skin with 3-0 nylon. We did remove all of our laparotomy pads and instrument. I then closed the peritoneum with a running #1 Vicryl and I closed the anterior fascia with a running #1 Maxon. The skin was closed with skin clips. The umbilical fascia was closed with a [id number] #1 Maxon. The skin was closed with skin clips. He was awakened in stable condition and transferred to the recovery room. There were no apparent complications. cc: Miguel De Anda MD
[2018-06-05] MEDS: MILK OF MAGNESIA PO SCH (20:41)
[2018-06-05] MEDS: APRESOLINE IV PRN (20:44)
[2018-06-05] MEDS ORDERED: LOVENOX SUBQ SCH (21:00)
[2018-06-06] MEDS: APRESOLINE IV PRN (03:54)
[2018-06-06 04:20] LABS: HEMATOCRIT 30.5 % (42.0-52.0); HEMOGLOBIN 9.9 g/dL (14.0-18.0); MCH 31.3 PG (27-31); MCHC 32.5 g/dL (33-37); MCV 96.5 FL (81-99); MPV 12.3 FL (7.4-10.4); RBC 3.16 XMIL (4.7-6.1); RDW 14.8 % (11.5-14.5); WBC 12.13 X1000 (4.8-10.8)
[2018-06-06 04:57] LABS: AGAP 12; ALB/GLOB RATIO 0.7; ALBUMIN 2.3 g/dL (3.5-5.0); ALKALINE PHOSPHATASE 345 U/L (32-122); BUN 10 mg/dL (8-22); CALCIUM 7.8 mg/dL (8.8-10.2); CHLORIDE 107 mmol/L (98-107); COSMO 280; CREATININE 0.6 mg/dL (0.7-1.2); ESTIMATED GFR > 60; GLUCOSE 131 mg/dL (70-104); GOT 33 U/L (10-34); GPT 46 U/L (10-44); POTASSIUM 3.5 mmol/L (3.5-5.1); SODIUM 140 mmol/L (136-145); TCO2 21 mmol/L (25-35); TOTAL BILIRUBIN 1.31 mg/dL (0.20-1.00); TOTAL PROTEIN 5.7 g/dL (6.3-8.3)
[2018-06-06 05:16] LABS: MAGNESIUM 1.6 mg/dL (1.5-2.7); PHOSPHORUS 3.6 mg/dL (2.7-4.5)
[2018-06-06] MEDS: ZOSYN 2.25 GM in NS 50 ML IV SCH ×2 (05:37→10:00)
[2018-06-06] MEDS: PROTONIX IV SCH (05:39)
[2018-06-06] MEDS: NS 1,000 ML IV SCH ×2 (05:39→18:44)
[2018-06-06] MEDS: KEPPRA PO SCH ×3 (05:40→20:20)
[2018-06-06] MEDS ORDERED: MAGNESIUM SULFATE 2 GM/S.W.I. 2 GM/50 ML IVPB IV ONE (07:33)
[2018-06-06] MEDS ORDERED: NS 1,000 ML IV SCH (07:45)
[2018-06-06] MEDS: ZYVOX 600 MG/D5W 600 MG/300 ML IVPB IV SCH ×2 (08:29→20:20)
[2018-06-06] MEDS: NAMENDA PO SCH (08:30)
[2018-06-06] MEDS: TOPROL XL PO SCH (08:30)
--- NOTE | 2018-06-06 08:49 | PROGRESS NOTE ---
DATE: 06/06/2018 SUBJECTIVE: He is awake and appeared comfortable. OBJECTIVE: He has remained afebrile. Temperature 97.8, pulse 90, respirations 17, and blood pressure 134/72. Lungs are clear anterolateral. Cardiovascular exam with regular rhythm and rate. Abdomen is soft. Positive bowel sounds. No pedal edema. ASSESSMENT AND PLAN: 1. He had a laparoscopic converted to open cholecystectomy. Cholangiogram revealed dilated intra and extrahepatic bile ducts without intraluminal filling. There is some narrowing of the proximal cystic duct in the ampulla, but unclear if this was due to intraluminal mass effect converted to an open technique. Gallbladder taken out. 2. He presented with septic shock and of course this is better. Continue present antibiotics. 3. He presented with volume depletion. This is resolved. Renal function was good. 4. Continue to watch electrolytes and supplement. 5. Hematocrit 30 and hemoglobin 9.9 stable. Creatinine is 0.6. Sodium 140, potassium 3.5, chloride 107, and BUN 10. Looking at orders, I do not see any changes at this point. We ordered Apresoline p.r.n. We will get a set of blood cultures. I think the plan is to try and get him back to [facility], and I think they would like to pursue hospice care. cc: Ben Last MD
[2018-06-06] MEDS: MORPHINE IV PRN ×2 (08:56→12:17)
--- NOTE | 2018-06-06 09:00 | GENERAL SURGERY PROGRESS NOTE ---
DATE: 06/06/2018 SUBJECTIVE: The patient is doing okay this morning. He denies abdominal pain, nausea, or vomiting. OBJECTIVE: Vital Signs: He is afebrile. His vital signs look stable. He did have some hypertension in the 160 systolic earlier but this is now down to 130s, O2 saturation 92 to 98 percent. Urine output 1325 mL yesterday. LEIGH ANN drain, 15 mL and serosanguineous. General: He is awake, alert, and oriented x4. No acute distress. CV: Regular rate and rhythm. Respiratory: No work of breathing. Gastrointestinal: Soft, nondistended. Appropriately and mildly tender to palpation. Incisional dressing is clean, dry, and intact. Laboratory Data: White blood cell count 12,000, hemoglobin 9.9, hematocrit 30.5, platelet count 247,000. Electrolytes reviewed and are notable for decreasing liver function tests. Imaging: None today. ASSESSMENT AND PLAN: An 88-year-old male postoperative day 1 open cholecystectomy for acute cholecystitis. He appears to be making appropriate progress at this point. I have encouraged him to try a liquid diet today and to participate with physical therapy for as much mobilization as he can. I would continue the Zosyn for now. Repeat blood cultures have been drawn this morning. We will follow those. cc: Miguel De Anda MD
[2018-06-06] MEDS: LOVENOX SUBQ SCH ×3 (10:00→21:48)
--- NOTE | 2018-06-06 11:47 | INFECTIOUS DISEASE CONSULT REP ---
DATE: 06/06/2018 CONCLUSION: The patient is status post open cholecystectomy because of the marked inflammation of the gallbladder. The patient has an Escherichia coli bacteremia, which almost certainly arose from the patient's cholecystitis. Today, the patient's white blood cell count increased to 12,000. I think that this occurred because the dose of Zosyn is only 2.25 g IV every 6 hours. That is a relatively low dose of Zosyn. RECOMMENDATIONS: I have increased the dose of Zosyn to 4.5 g IV every 6 hours. DISCUSSION: The patient was unable to provide a history and no family member was present. The patient was admitted to the hospital with an altered mental status. He had persistent, shaking chills. He was hypotensive and had a low oxygen saturation. The patient's CT scan of the abdomen and pelvis showed there was a thickened, irregular gallbladder wall with stranding. The patient's bilirubin was 4.9 with an elevated AST and ALT. The patient was treated with antibiotics and transferred to [facility]. The patient underwent a cholecystectomy by Dr. De Anda. Initially, it was tried to be done laparoscopically, but this was not possible and instead, the patient had an open cholecystectomy. The patient's CBC today shows a white count of 12,130, hemoglobin 9.9, and platelet count 247,000. The patient's creatinine is 0.6. GFR is greater than 60. Alkaline phosphatase is 345. Blood cultures grew E. coli. Repeat blood cultures are pending. Urine culture was negative. Swab for influenza was negative. Stool for culture was negative. PAST MEDICAL HISTORY: Positive for hypertension, paroxysmal atrial fibrillation, hyperlipidemia, seizure disorder, sick sinus syndrome. PAST SURGICAL HISTORY: Positive for an implantation of a pacemaker. The patient has also had an appendectomy. SOCIAL HISTORY: The patient lives in [place]. He does not smoke cigarettes, drink alcoholic beverages or abuse drugs. REVIEW OF SYSTEMS: FAMILY HISTORY: Unable to be obtained. ALLERGIES: The patient has no known drug allergies. HOME MEDICATIONS: Vitamins and minerals, Lasix, metoprolol, pantoprazole, Xarelto, and tramadol. HEIGHT/WEIGHT: Patient is 5 feet 8 inches tall and weighs 193 pounds. PHYSICAL EXAMINATION: Vital Signs: Temperature is 98 degrees, pulse 88, blood pressure 131/68. General: This is a fairly healthy-appearing elderly male. He is in no acute distress. Head/eyes/ears/nose/throat: He can hear my spoken words and see near objects. He does not have any white patches on his tongue. Neck: No meningismus. Lungs: Clear to auscultation. Cardiovascular: Heart rate was irregular. Abdomen: Soft. It was not tender to light palpation. The patient's incisions had dressings over them. A drain also is in place. Neurologic: The patient is awake. He can move his extremities. There is no tremor. As mentioned earlier, the patient was unable to provide a history of his medical illnesses and also the patient was unable to provide information regarding his past medical history is and also a review of systems was unable to be done. Integument: No rash noted. Thank you for the consult. cc: Todd Melendrez MD
[2018-06-06] MEDS: ZOSYN 4.5 GM in NS 100 ML IV SCH ×2 (15:01→22:02)
[2018-06-06] MEDS ORDERED: NS 500 ML IV ONE (18:35)
[2018-06-06] MEDS: MILK OF MAGNESIA PO SCH (20:20)
[2018-06-06] MEDS ORDERED: INSULIN PEN NEEDLES ONE (20:20)
[2018-06-07] MEDS: ZOSYN 4.5 GM in NS 100 ML IV SCH ×4 (03:47→21:19)
[2018-06-07 06:04] LABS: AGAP 8; BUN 8 mg/dL (8-22); CALCIUM 7.7 mg/dL (8.8-10.2); CHLORIDE 107 mmol/L (98-107); COSMO 273; CREATININE 0.7 mg/dL (0.7-1.2); ESTIMATED GFR > 60; GLUCOSE 83 mg/dL (70-104); SODIUM 138 mmol/L (136-145); TCO2 23 mmol/L (25-35)
[2018-06-07 06:07] LABS: BASO# 0.01 X1000 (0.0-0.2); BASO% 0.1 % (0.0-0.8); EOS# 0.08 X1000 (0.0-0.7); EOS% 1.2 % (0.0-10.0); HEMATOCRIT 29.8 % (42.0-52.0); HEMOGLOBIN 9.3 g/dL (14.0-18.0); IMM GRAN# 0.07 X1000 (0.0-0.04); LYMPH# 0.76 X1000 (1.2-3.4); LYMPH% 11.4 % (20.5-51.1); MCH 30.3 PG (27-31); MCHC 31.2 g/dL (33-37); MCV 97.1 FL (81-99); MONO# 0.54 X1000 (0.11-0.59); MONO% 8.1 % (1.7-9.3); MPV 13.5 FL (7.4-10.4); NEUT# 5.21 X1000 (1.4-6.5); NEUT% 78.2 % (42.2-75.2); PLT 130 X1000 (130-400); RBC 3.07 XMIL (4.7-6.1); RDW 14.9 % (11.5-14.5); WBC 6.67 X1000 (4.8-10.8)
[2018-06-07] MEDS: PROTONIX IV SCH (06:11)
[2018-06-07] MEDS: NS 1,000 ML IV SCH ×2 (06:13→14:10)
[2018-06-07] MEDS: ZYVOX 600 MG/D5W 600 MG/300 ML IVPB IV SCH (07:40)
[2018-06-07] MEDS: KEPPRA PO SCH ×2 (07:59→20:04)
[2018-06-07] MEDS: TOPROL XL PO SCH (07:59)
[2018-06-07] MEDS: NAMENDA PO SCH (07:59)
[2018-06-07] MEDS: FOLIC ACID PO SCH (07:59)
[2018-06-07] MEDS ORDERED: NS 500 ML IV ONE (08:29)
[2018-06-07] MEDS: LOVENOX SUBQ SCH (08:35)
--- NOTE | 2018-06-07 14:16 | GENERAL SURGERY PROGRESS NOTE ---
DATE: 06/07/2018 SUBJECTIVE: The patient is doing well overall. He is drinking some liquids without vomiting. He is sitting up with physical therapy. No chest pain, shortness of breath, abdominal pain, nausea, vomiting, fever, or chills. OBJECTIVE: Vital Signs: He is afebrile. Vital signs are stable. General: He is awake, alert, and oriented x3. No acute distress. CV: Regular rate and rhythm. Respiratory: No work of breathing. GI: Soft, nontender, nondistended. Incision is clean, dry, and intact. Drain with serous output. No bile. Urine output 640 mL yesterday, now 30-40 mL an hour today. Deo drain output 40 mL. Laboratory: White blood cell count 6, hemoglobin 9.3, hematocrit 29.8. Electrolytes reviewed and unremarkable. Imaging: A left upper extremity venous ultrasound yesterday did show a new DVT. ASSESSMENT AND PLAN: An 88-year-old male status post open cholecystectomy, recent bacteremia (new blood cultures are pending), and a new left upper arm deep venous thrombosis. [facility] Transfer him to the floor. Advance his diet as tolerated. Continue antibiotics per Dr. Melendrez. I plan to remove his drain prior to discharge and I am hoping he will be ready to transition back to [facility] this weekend. cc: Miguel De Anda MD
--- NOTE | 2018-06-07 17:33 | INFECTIOUS DISEASE PROGRESS NO ---
DATE: 06/07/2018 PRESENT ILLNESS: Mr. Louis is status post open cholecystectomy due to gallbladder inflammation, which most likely is the origin of his Escherichia coli bacteremia. MEDICATIONS: He is on day 1 of Zosyn with a higher dosage of 4.5 g IV every 6 hours. He has also had Zyvox 600 mg IV every 12 hours, which we will discontinue today. PHYSICAL EXAMINATION: Vital Signs: Temperature is 97.8 degrees, pulse rate 89, respiratory rate 21, blood pressure 127/60, O2 saturation is 96% on room air. General: This is an elderly chronically ill-appearing gentleman, lying in the bed, currently in no acute distress. HEENT: Atraumatic, normocephalic. He has a facial droop. EOMs are abnormal. 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 Oral mucous membranes are pink and dry. Conjunctiva are pale. Neck: Supple. Trachea is midline. Cardiovascular: Heart rate and rhythm are regular with underlying sinus rhythm with a first-degree block. Frequent PVCs noted. Pedal and radial pulses are weak bilaterally with upper extremity edema noted, 2+. Respiratory: Lung sounds are clear in the upper and middle lobes, diminished in the bases. Abdomen: Soft, round, and tender with active bowel sounds. There are dressings which are dry and intact and a LEIGH ANN drain which has a small amount of serosanguineous drainage noted in the bulb. Neurologic: He is awake, alert, and follows commands without difficulty. Able to move his extremities in the bed with generalized weakness noted. DIAGNOSTIC STUDIES: Today his white count is 6.67, hemoglobin 9.3, platelet count 130,000. Creatinine is 0.7, estimated GFR is greater than 60. His previous blood culture had grown an Escherichia coli which is multidrug susceptible. A new set of blood cultures was drawn yesterday morning and is preliminary. No imaging reports today. ASSESSMENT AND PLAN: Mr. Louis has an Escherichia coli bacteremia, which most likely came from his gallbladder, which has been removed. He has been afebrile, and his white count is back to normal today. There has been a drop in his platelet count, and there is no current need for methicillin-resistant Staphylococcus aureus coverage, so we will go ahead and discontinue his Zyvox and continue Zosyn at a higher dose which was increased yesterday. These plans have been discussed with and recommended by Dr. Melendrez. COMORBIDITIES: For Mr. Louis include he is an elderly, skilled nursing patient with a seizure disorder, pacemaker and a left upper extremity DVT. Dictated by GENOVEVA Pierson for Todd Melendrez MD This chart was documented by, GENOVEVA Pierson and accurately reflects the services performed, treatment plan and medical decisions as attested by the providers signature Todd Melendrez MD. cc: Todd Melendrez MD [facility]
[2018-06-07] MEDS ORDERED: COLACE PO PRN (19:14)
[2018-06-07] MEDS ORDERED: MILK OF MAGNESIA PO PRN (19:14)
[2018-06-07] MEDS: PERICOLACE PO SCH (20:04)
[2018-06-07] MEDS: MILK OF MAGNESIA PO SCH (20:04)
[2018-06-07] MEDS: XARELTO PO SCH (20:04)
[2018-06-08 07:11] LABS: BASO# 0.01 X1000 (0.0-0.2); BASO% 0.2 % (0.0-0.8); EOS# 0.08 X1000 (0.0-0.7); EOS% 1.4 % (0.0-10.0); HEMATOCRIT 31.3 % (42.0-52.0); HEMOGLOBIN 9.6 g/dL (14.0-18.0); IMM GRAN# 0.06 X1000 (0.0-0.04); LYMPH# 0.85 X1000 (1.2-3.4); LYMPH% 14.7 % (20.5-51.1); MCH 30.4 PG (27-31); MCHC 30.7 g/dL (33-37); MCV 99.1 FL (81-99); MONO# 0.51 X1000 (0.11-0.59); MONO% 8.8 % (1.7-9.3); MPV 11.9 FL (7.4-10.4); NEUT# 4.29 X1000 (1.4-6.5); NEUT% 73.9 % (42.2-75.2); PLT 250 X1000 (130-400); RBC 3.16 XMIL (4.7-6.1); RDW 14.9 % (11.5-14.5)
[2018-06-08] MEDS: PROTONIX PO SCH (07:28)
--- NOTE | 2018-06-08 08:56 | PROGRESS NOTE ---
DATE: 06/08/2018 SUBJECTIVE: Mr. Louis is feeling good. We have moved him down to the 4th floor. He had a good night's sleep. No complaints of pain or discomfort. OBJECTIVE: Vital signs: Temperature 99 degrees, pulse 92, respirations 20, blood pressure 104/82. HEENT: Pupils are equal and round. Lungs: Clear in all lung ardon. Cardiovascular: Regular rhythm and rate without murmur or S3. Abdomen: Soft. He has a Abdulkadir-Evans drain still in place. Bandages are dry. Extremities: No pedal edema. Genitourinary: Urine output was almost 700 mL. ASSESSMENT AND PLAN: 1. Status post open cholecystectomy due to gallbladder inflammation, most likely his origin of bacteremia was Escherichia coli. He is on Zosyn. Put him on a higher dose of 4.5 g IV q.6 and Zyvox 600 mg IV q.12. Clinically improving. 2. Status post open cholecystectomy, recent bacteremia. Blood cultures are pending. Has a new left upper arm venous thrombosis. 3. Left upper arm thrombosis. Continue Lovenox. He is getting 1 mg/kg q.12. We are going to work on his strength and advance his diet as tolerated. REVIEW OF HIS ORDERS: I do not see any change at this point. Getting Lasix 20 mg p.o. q.a.m., Apresoline 10 mg IV q.4 p.r.n., elevated blood pressure. He is on Keppra 750 mg b.i.d., Namenda 5 mg a day, metoprolol succinate 25 mg q.a.m., Protonix 40 mg a day, Xarelto 20 mg at bedtime, Marysol- Colace 1 b.i.d., and his antibiotics of Zosyn 4.5 g IV q.6 and I think we may have stopped the Zyvox. Cultures: No growth, blood cultures from 06/06/2018 x2. Urine with no growth. Culture from 06/02/2018 grew E coli and it is sensitive to everything. cc: Ben Last MD
[2018-06-08] MEDS: FLONASE NAS SCH (09:26)
[2018-06-08] MEDS: ASPIRIN EC PO SCH (09:27)
[2018-06-08] MEDS: NAMENDA PO SCH (09:27)
[2018-06-08] MEDS: FOLIC ACID PO SCH (09:28)
[2018-06-08] MEDS: PERICOLACE PO SCH ×2 (09:28→21:27)
[2018-06-08] MEDS: TOPROL XL PO SCH (09:28)
[2018-06-08] MEDS: LASIX PO SCH (09:28)
[2018-06-08] MEDS: ZOSYN 4.5 GM in NS 100 ML IV SCH (09:28)
[2018-06-08] MEDS: KEPPRA PO SCH ×2 (10:15→21:27)
[2018-06-08] MEDS ORDERED: LEVAQUIN PO SCH (14:00)
--- NOTE | 2018-06-08 14:19 | INFECTIOUS DISEASE PROGRESS NO ---
DATE: 06/08/2018 PRESENT ILLNESS: The patient has an E. coli bacteremia which originated from the patient's cholecystitis. The date of his 1st repeat blood culture that was sterile is June 06. MEDICATIONS: Currently the patient is receiving Zosyn. PHYSICAL EXAMINATION: Vital Signs: Temperature is 98.3 degrees, pulse 90, respirations 18, blood pressure 148/74. General: This is a chronically ill-appearing, elderly male. He is in no acute distress. Head, eyes, ears, nose, throat: He can hear my spoken words. His right eye deviates laterally and he has limited vision with it, but he can see near objects with his other eye. His hearing is still good. Neck: No stiffness. Lungs: Clear to auscultation. Cardiovascular: Heart rate for the most part is regular but there appear to be times when the patient has PVCs. Thorax: The patient's pacemaker site is not swollen or erythematous. Abdomen: Soft and not tender. There is a drain in place. Neurologic: Patient is awake. He can move his extremities. There is no tremor. LAB AND X-RAY: There is no new radiographic studies. The CBC for today shows a white count of 5,800, hemoglobin 9.6, and platelet count 250,000. As mentioned above, the patient's blood cultures 1st became negative on June 06. Urine culture is negative. ASSESSMENT AND PLAN: The patient has Escherichia coli bacteremia as mentioned above. I am switching him today from Zosyn to Levaquin p.o. This will be the second day of treatment with the first day being the day that the patient's blood cultures become negative. The patient has an pacemaker in place and therefore I will be treating the patient for 6 weeks with Levaquin in case the pacemaker became hematogenously infected. The patient does have a history of seizures. I will have to check with him to see about that in view of the fact that Levaquin has been associated with seizures and it may well be that we will have to treat him with a different medication. COMORBIDITIES: He is elderly. He had cholecystitis. He has a seizure disorder. He has a pacemaker in place. cc: Todd Melendrez MD
--- NOTE | 2018-06-08 14:21 | INFECTIOUS DISEASE PROGRESS NO ---
DATE: 06/08/2018 ADDENDUM: I discussed with the patient about his history of seizures. He said recently he had a seizure and is on seizure medicine. Because of that, I do not think I should give him Levaquin Instead.I will put him on Rocephin and treat him for 12 more days to complete a 2- week treatment course for the patient's bacteremia, and then I will switch him over to amoxicillin or Keflex for 4 more weeks to complete a 6-week treatment course. cc: Todd Melendrez MD [facility]
[2018-06-08] MEDS: ROCEPHIN 2 GM in NS 50 ML IV SCH (14:24)
--- NOTE | 2018-06-08 18:10 | GENERAL SURGERY PROGRESS NOTE ---
DATE: 06/08/2018 SUBJECTIVE: The patient is doing well. No abdominal pain, nausea or vomiting. He is eating a little food. OBJECTIVE: Vital Signs: He is afebrile. Vital signs are stable. General: He is awake and alert, oriented x3. No acute distress. CV: Regular rate and rhythm. Respiratory: No work of breathing. Gastrointestinal: Soft, minimally tender. No rebound or guarding. Good bowel sounds. His incision is clean, dry and intact. LABORATORY: CBC was reviewed and unremarkable. Recent blood cultures 2 days ago were negative for growth. ASSESSMENT AND PLAN: 1. An 88-year-old male, status post open cholecystectomy for acute cholecystitis. 2. Also recovering from gram-negative darrin bacteremia. Overall, he seems to be making good progress. We will keep him on a soft diet and have him work with physical therapy. He is receiving antibiotics per Dr. Melendrez. 3. He is also on Lovenox for new left upper extremity deep vein thrombosis. cc: Miguel De Anda MD
[2018-06-08] MEDS: XARELTO PO SCH (21:27)
[2018-06-08] MEDS: MILK OF MAGNESIA PO SCH (21:27)
[2018-06-09] MEDS: ROCEPHIN 2 GM in NS 50 ML IV SCH ×2 (02:52→13:44)
[2018-06-09] MEDS: PROTONIX PO SCH (06:21)
[2018-06-09 07:10] LABS: AGAP 13; BUN 8 mg/dL (8-22); CALCIUM 7.8 mg/dL (8.8-10.2); CHLORIDE 106 mmol/L (98-107); COSMO 276; CREATININE 0.5 mg/dL (0.7-1.2); ESTIMATED GFR > 60; GLUCOSE 97 mg/dL (70-104); SODIUM 139 mmol/L (136-145); TCO2 20 mmol/L (25-35)
--- NOTE | 2018-06-09 09:07 | PROGRESS NOTE ---
DATE: 06/09/2018 SUBJECTIVE: Mr. Louis is awake and alert. He feels good. No complaints. He has remained afebrile. We advanced him to a soft GI diet. He still has a Ventura catheter in. Abdulkadir-Evans drain in place. His bandages are dry in his abdomen. OBJECTIVE: Temperature 98.1 degrees, pulse 97, respirations 20, and blood pressure 151/83. Pupils are equal and round. Lungs are clear in all lung ardon. Cardiovascular exam with regular rhythm and rate without murmur or S3. Abdomen is soft. Skin is warm and dry. Urine output is over 800 mL. ASSESSMENT AND PLAN: 1. An 88-year-old male status post open cholecystectomy for acute cholecystitis. He seems to be recovering well. He did have E. Coli bacteremia. Continue his present antibiotics. I think we can switch him to p.o. Dr. Melendrez wants to switch him to p.o. Levaquin. 2. Recovering from gram-negative darrin bacteremia. 3. General weakness and deconditioning. Continue physical therapy. Again, the plan is he is wanting to go to [place] and with hospice. 4. Reviewed the lab from yesterday, white count 5800, hematocrit was 31, and platelet count 250,000. This morning chemistry showed sodium 139, potassium 4.0, chloride 106, BUN 8, and creatinine 0.5. 5. Continue present therapy. Hopefully, he will get to go to [place] on Tuesday or Tuesday. We will get him up in a chair. 6. I should also add that he has in his left arm deep venous thrombosis, so he is on Xarelto. We will continue his Xarelto 20 mg at bedtime, try and elevate his arm. He is on ceftriaxone at this time 2 g IV q.12. I think the plan is to change him to Levaquin p.o. cc: Ben Last MD
[2018-06-09] MEDS: FLONASE NAS SCH (10:11)
[2018-06-09] MEDS: PERICOLACE PO SCH ×2 (10:12→22:51)
[2018-06-09] MEDS: KEPPRA PO SCH ×2 (10:12→22:51)
[2018-06-09] MEDS: ASPIRIN EC PO SCH (10:12)
[2018-06-09] MEDS: LASIX PO SCH (10:12)
[2018-06-09] MEDS: NAMENDA PO SCH (10:13)
[2018-06-09] MEDS: TOPROL XL PO SCH (10:13)
[2018-06-09] MEDS: FOLIC ACID PO SCH (10:13)
--- NOTE | 2018-06-09 14:32 | INFECTIOUS DISEASE PROGRESS NO ---
DATE: 06/09/2018 PRESENT ILLNESS: Mr. Louis is being treated for Escherichia coli bacteremia that originated from his cholecystitis. MEDICATIONS: Based on his sterile blood cultures, today is day 3 of treatment for his bacteremia. He is currently receiving ceftriaxone 2 g IV every 12 hours. PHYSICAL EXAMINATION: Vital Signs: Temperature is 98.1 degrees, pulse rate 97, respiratory rate 20, blood pressure 151/83. O2 saturation is 100% on room air. General: This is a chronically ill-appearing, elderly gentleman. He is lying in the bed, currently in no acute distress. HEENT: Oral mucous membranes are pink and dry. Conjunctivae are pale. Neck: Supple. Trachea is midline. Cardiovascular: Heart rate and rhythm are irregular with an underlying sinus rhythm and occasional ectopic beats. Respiratory: Lung sounds are clear in the upper lobes, diminished in the bases. Abdomen: Soft, round and tender. Bowel sounds are active. Integumentary: There are dressings in place to his abdomen, which have a small amount of qawalangin drainage on them, as well as a LEIGH ANN drain with a small amount of serosanguineous drainage noted in the bulb. Skin is warm and dry. Neurologic: He is drowsy and lethargic, but arousable. Falls back to sleep frequently. Following commands without difficulty. Extremities are weak with generalized edema noted, 1+ to 2+. His left upper extremity is a little more swollen at 2+ and is elevated on a pillow. LABORATORY AND X-RAY: No CBC today, but his creatinine is 0.5. Estimated GFR is greater than 60. His original blood cultures grew an Escherichia coli. The most recent blood cultures have shown no growth after 48 hours. No imaging reports today. ASSESSMENT AND PLAN: Mr. Louis has an Escherichia coli bacteremia which will require 6 weeks of treatment due to his pacemaker. The plan is for him to have two weeks of Rocephin and then 4 weeks of an oral Keflex or amoxicillin to complete the treatment for his bacteremia. At this point it looks like he will be here through next week. The tentative plan is to be discharged with Hospice. We will continue antibiotics for now, and discontinue if deemed appropriate. These plans have been discussed with and recommended by Dr. Melendrez. COMORBIDITIES: Comorbidities for Mr. Louis include that he is elderly with a pacemaker and seizure disorder. Dictated by GENOVEVA Pierson for Todd Melendrez MD This chart was documented by, GENOVEVA Pierson and accurately reflects the services performed, treatment plan and medical decisions as attested by the providers signature Todd Melendrez MD. cc: Todd Melendrez MD [facility]
--- NOTE | 2018-06-09 14:58 | Extremity Venous Study ---
PROCEDURE NAME: Venous U/S Left Arm - 06/06/2018 DESCRIPTION OF STUDY: Left upper extremity venous duplex and color flow imaging study using the GE vivid E9 ultrasound system with a 9L-D transducer. REFERRING PHYSICIAN: Bailee Carreon MD IDENTIFYING DATA: An 88-year-old male. BARTENDER SERVER: Eri Monk RVT INDICATIONS: Edema of left upper extremity. FINDINGS: The left internal jugular vein was compressible throughout its length. There appeared to be an acute deep venous thrombosis involving the left subclavian vein, the left axillary vein and extending into the left basilic vein. INTERPRETATION: Acute deep venous thrombosis involving the left subclavian, left axillary, and left basilic vein. cc: MD Bailee Zhang MD
--- NOTE | 2018-06-09 20:20 | GENERAL SURGERY PROGRESS NOTE ---
DATE: 06/09/2018 SUBJECTIVE: The patient is doing well. No abdominal pain, nausea, or vomiting. He is eating some and working with Physical Therapy. He is probably going to rehab on Tuesday. OBJECTIVE: Afebrile. Vital signs are stable. General: He is awake and alert, oriented x3. No acute distress. Abdomen: Soft, nontender, nondistended. Right upper quadrant incision is clean, dry, and intact. The drain had serosanguineous fluid, no bile. I removed it today. ASSESSMENT AND PLAN: An 88-year-old male status post open cholecystectomy for acute cholecystitis. He also is recovering from gram-negative darrin bacteremia and a left upper extremity deep vein thrombosis. He is on Xarelto. I agree with plans for rehab on Tuesday. cc: Miguel De Anda MD
[2018-06-09] MEDS: MILK OF MAGNESIA PO SCH ×2 (22:51→22:58)
[2018-06-09] MEDS: XARELTO PO SCH (22:51)
[2018-06-10] MEDS: ROCEPHIN 2 GM in NS 50 ML IV SCH ×2 (04:33→13:27)
[2018-06-10 06:46] LABS: BASO# 0.01 X1000 (0.0-0.2); BASO% 0.1 % (0.0-0.8); EOS# 0.05 X1000 (0.0-0.7); EOS% 0.6 % (0.0-10.0); HEMATOCRIT 28.1 % (42.0-52.0); HEMOGLOBIN 8.8 g/dL (14.0-18.0); IMM GRAN# 0.07 X1000 (0.0-0.04); IMM GRAN% 0.9 % (0.0-0.5); LYMPH% 7.4 % (20.5-51.1); MCH 30.6 PG (27-31); MCHC 31.3 g/dL (33-37); MCV 97.6 FL (81-99); MONO# 0.67 X1000 (0.11-0.59); MONO% 8.3 % (1.7-9.3); MPV 11.7 FL (7.4-10.4); NEUT% 82.7 % (42.2-75.2); PLT 225 X1000 (130-400); RBC 2.88 XMIL (4.7-6.1); RDW 14.1 % (11.5-14.5)
[2018-06-10 07:07] LABS: AGAP 11; ALB/GLOB RATIO 0.7; ALBUMIN 1.9 g/dL (3.5-5.0); ALKALINE PHOSPHATASE 218 U/L (32-122); BUN 7 mg/dL (8-22); CALCIUM 7.9 mg/dL (8.8-10.2); CHLORIDE 103 mmol/L (98-107); COSMO 269; CREATININE 0.5 mg/dL (0.7-1.2); ESTIMATED GFR > 60; GLUCOSE 87 mg/dL (70-104); GOT 103 U/L (10-34); GPT 103 U/L (10-44); MAGNESIUM 1.7 mg/dL (1.5-2.7); POTASSIUM 3.5 mmol/L (3.5-5.1); SODIUM 136 mmol/L (136-145); TCO2 22 mmol/L (25-35); TOTAL BILIRUBIN 0.87 mg/dL (0.20-1.00); TOTAL PROTEIN 4.8 g/dL (6.3-8.3)
--- NOTE | 2018-06-10 09:24 | PROGRESS NOTE ---
DATE: 06/10/2018 SUBJECTIVE: Mr. Louis was sleeping, easy to arouse. OBJECTIVE: Vital signs: Temperature 99.2 degrees, pulse 96, respirations 25, blood pressure 140/70. Lungs: Clear anterolateral. Cardiovascular: Regular rhythm and rate without murmur or S3. Abdomen: Soft. Skin: Warm and dry. Urine output is 2200 mL. He reports that he does feel better. He has remained afebrile. He still has a Ventura catheter. ASSESSMENT AND PLAN: 1. An 88-year-old male status post open cholecystectomy for acute cholecystitis. He had bacteremia with gram-negative Escherichia coli, treated with antibiotics. He is now on p.o. Levaquin. 2. He had a left arm deep venous thrombosis and so he is on Xarelto. 3. General weakness and deconditioning. Continue physical therapy. Plan is to go to [place] with hospice the first of the week. 4. Nutrition. He is eating. He is on soft diet. Encourage p.o. intake. His Abdulkadir-Evans drain is out. His abdominal wound looks good. REVIEW OF HIS PRESENT MEDICATION: 1. Aspirin 81 mg a day. 2. Colace 100 mg a day. 3. Fluticasone nasal spray each nostril every morning. 4. Folic acid 0.4 mg a day. 5. Lasix 20 mg p.o. q.a.m. 6. Keppra 750 mg b.i.d. 7. Namenda 5 mg daily. 8. Metoprolol 25 mg q.a.m. 9. Xarelto 20 mg at bedtime. 10. He is getting ceftriaxone 2 g IV q.12. 11. Marysol-Colace twice a day. cc: Ben Last MD
[2018-06-10] MEDS: FLONASE NAS SCH ×2 (11:33→11:48)
[2018-06-10] MEDS: KEPPRA PO SCH (11:33)
[2018-06-10] MEDS: ASPIRIN EC PO SCH (11:35)
[2018-06-10] MEDS: FOLIC ACID PO SCH (11:35)
[2018-06-10] MEDS: LASIX PO SCH (11:36)
[2018-06-10] MEDS: TOPROL XL PO SCH (11:36)
[2018-06-10] MEDS: PERICOLACE PO SCH (11:36)
[2018-06-10] MEDS: NAMENDA PO SCH (11:36)
[2018-06-10] MEDS: PROTONIX PO SCH (11:40)
--- NOTE | 2018-06-10 16:18 | GENERAL SURGERY PROGRESS NOTE ---
DATE: 06/10/2018 SUBJECTIVE: He is doing well. His bowels are functioning. He is tolerating a diet. No complaints. No fevers. OBJECTIVE: Vital Signs: Pulse is 92. Blood pressure is 140/70. General: He is alert. Abdomen: Soft. Incision is intact. I have reviewed his labs. ASSESSMENT AND PLAN: An 88-year-old gentleman status post open cholecystectomy. The plan is for rehab early next week. Otherwise, we will continue the current postop care. cc: Alvaro Chappell MD
[2018-06-11] MEDS: KEPPRA PO SCH ×3 (00:58→20:41)
[2018-06-11] MEDS: PERICOLACE PO SCH ×3 (00:58→20:41)
[2018-06-11] MEDS: XARELTO PO SCH ×2 (00:59→20:41)
[2018-06-11] MEDS: MILK OF MAGNESIA PO SCH ×2 (00:59→20:41)
[2018-06-11] MEDS: ROCEPHIN 2 GM in NS 50 ML IV SCH ×2 (01:06→13:45)
[2018-06-11] MEDS: PROTONIX PO SCH (06:33)
--- NOTE | 2018-06-11 07:50 | PROGRESS NOTE ---
DATE: 06/11/2018 SUBJECTIVE: Mr. Louis was sleeping comfortably, breathing comfortably, easy to arouse. He says he feels a little stronger than yesterday. He ate a little bit of food. Still has Ventura catheter in. OBJECTIVE: Vital Signs: Temp 98.4 degrees, pulse 85, respirations 18, blood pressure 132/68. HEENT: Pupils are equal and round. Lungs: Clear in all lung ardon. Cardiovascular: Regular rhythm and rate without murmur or S3. Abdomen: Soft. Skin: Warm and dry. Urine output 1400 mL. ASSESSMENT AND PLAN: 1. Status post cholecystectomy for acute cholecystitis, and he had Escherichia coli bacteremia, doing much better. 2. Deep venous thrombosis in the left arm. He is on Xarelto. 3. General weakness and deconditioning. Continue physical therapy. I think we are making progress. Plan is to go to [facility] with hospice care. 4. He is eating a soft diet. 5. I think we will attempt to take the Ventura catheter out tomorrow. 6. Review of lab from yesterday, hematocrit was 28. Electrolytes looked good. Continue present orders. cc: Ben Last MD
[2018-06-11] MEDS: NAMENDA PO SCH (10:13)
[2018-06-11] MEDS: ASPIRIN EC PO SCH (10:13)
[2018-06-11] MEDS: FOLIC ACID PO SCH (10:13)
[2018-06-11] MEDS: TOPROL XL PO SCH (10:13)
[2018-06-11] MEDS: FLONASE NAS SCH (10:15)
[2018-06-11] MEDS: LASIX PO SCH (10:15)
--- NOTE | 2018-06-11 10:31 | GENERAL SURGERY PROGRESS NOTE ---
DATE: 06/11/2018 SUBJECTIVE: No events overnight. OBJECTIVE: No fevers. No tachycardia. Abdomen is soft. I reviewed his laboratories. Nothing new today. ASSESSMENT AND PLAN: An 88-year-old gentleman status post open cholecystectomy. Plan for rehab tomorrow. We will continue to follow along. cc: Alvaro Chappell MD
[2018-06-12] MEDS: ROCEPHIN 2 GM in NS 50 ML IV SCH ×2 (02:14→15:47)
[2018-06-12] MEDS: PROTONIX PO SCH (06:59)
--- NOTE | 2018-06-12 09:25 | PROGRESS NOTE ---
DATE: 06/12/2018 SUBJECTIVE: Mr. Louis is awake and alert. He is comfortable. I did the talk to one of his nieces. His abdominal incision looks good. Vashon in place. He has some generalized edema in his arms and legs but no pitting edema appreciated. OBJECTIVE: Temperature 98.2 degrees, pulse 101, respirations 24 and blood pressure 138/63. Pupils are equal round. Lungs are clear in all lung ardon. Cardiovascular regular rate without murmur or S3. Abdomen is soft. Skin is warm and dry. Urine output was 2000 mL. ASSESSMENT AND PLAN: 1. Status post open cholecystectomy for acute cholecystitis, had E coli bacteremia, is healing well. 2. Deep venous thrombosis, left arm. He is on Xarelto. 3. Weakness and deconditioning. Continue physical therapy. I think the plan is still to try and go to [facility] with hospice care. We will get the Ventura catheter out today. 4. Discontinue his Ventura catheter. 5. Nutrition. Continue to encourage p.o. intake. LAB: Reviewed from yesterday: Hematocrit 28, hemoglobin 8. Electrolytes from yesterday looked good. Sodium 136, potassium 3.5, chloride 103, BUN 7 creatinine 0.5. Note that liver functions did go up a little bit, AST from 33 to 103, ALT 46 to 103. He has some inter hepatic dilatation of his ducts. We will continue to watch the liver function test and he is on ceftriaxone right now. I think we can switch him over to Keflex or amoxicillin when he goes home. cc: Ben Last MD
[2018-06-12] MEDS: FLONASE NAS SCH (11:01)
[2018-06-12] MEDS: KEPPRA PO SCH ×2 (11:02→23:17)
[2018-06-12] MEDS: FOLIC ACID PO SCH (11:02)
[2018-06-12] MEDS: PERICOLACE PO SCH ×2 (11:02→23:17)
[2018-06-12] MEDS: NAMENDA PO SCH (11:02)
[2018-06-12] MEDS: LASIX PO SCH (11:03)
[2018-06-12] MEDS: ASPIRIN EC PO SCH (11:03)
[2018-06-12] MEDS: TOPROL XL PO SCH (11:03)
[2018-06-12] MEDS: MAXIPIME 2 GM in NS 100 ML IV SCH (18:17)
--- NOTE | 2018-06-12 19:18 | INFECTIOUS DISEASE PROGRESS NO ---
DATE: 06/12/2018 PRESENT ILLNESS: Mr. Louis is being treated for an Escherichia coli bacteremia that originated from his gallbladder inflammation. He has undergone a cholecystectomy on this admission. He has a mild transaminitis. MEDICATIONS: He has been receiving ceftriaxone 2 g IV every 12 hours, which we will change today. PHYSICAL EXAMINATION: Vital Signs: Temperature is 98.1 degrees pulse rate is 97, respiratory rate 24, blood pressure 123/62, O2 saturation 97% on room air. General: This is a chronically ill-appearing, confused, elderly gentleman, lying in bed, currently in mild distress, pulling off his heart monitor and his arm band. HEENT: Oral mucous membranes are pink and moist. Conjunctivae are pale. Cardiovascular: Heart rate and rhythm are regular, normal sinus rhythm on the monitor. Respiratory: Lungs sounds are clear in the upper lobes, diminished in the bases. Abdomen: Soft, round, nontender. Bowel sounds are active. Extremities: He has generalized weakness and edema noted. His left upper extremity has 2+ pitting edema. Neurologic: He is awake and alert, but very confused and mildly delirious. Integumentary: Incision to his abdomen with ronaldo intact. Open to air. LABORATORY AND X-RAY: None available today. ASSESSMENT AND PLAN: Mr. Louis has an Escherichia coli bacteremia which originated from his infected gallbladder which he has had removed. The plan is for him to have 6 weeks of treatment due to his pacemaker. Today is day 6 of his treatment based on his sterile blood cultures. He has had a small increase in his liver enzymes, so we will discontinue his Rocephin and start him on cefepime 2 g IV every 12 hours, which we will continue while he is in the hospital. I believe the plan is for him to go home with hospice or to rehabilitation with hospice following. Once he is discharged from the hospital, it would be fine for him to go out on amoxicillin 500 mg by mouth every 8 hours for the last 5 weeks. These plans have been discussed with and recommended by Dr. Melendrez. COMORBIDITIES: For Mr. Louis include: 1. He is elderly. 2. Pacemaker. 3. History of seizure disorder 4. Left upper extremity deep vein thrombosis (DVT). Dictated by GENOVEVA Pierson for Todd Melendrez MD This chart was documented by, GENOVEVA Pierson and accurately reflects the services performed, treatment plan and medical decisions as attested by the providers signature Todd Melendrez MD. cc: Todd Melendrez MD [facility]
[2018-06-12] MEDS: XARELTO PO SCH (23:17)
[2018-06-12] MEDS: MILK OF MAGNESIA PO SCH (23:18)
[2018-06-13] MEDS: PROTONIX PO SCH ×2 (05:36→08:14)
[2018-06-13] MEDS: MAXIPIME 2 GM in NS 100 ML IV SCH (05:37)
[2018-06-13 07:01] LABS: BASO# 0.03 X1000 (0.0-0.2); BASO% 0.3 % (0.0-0.8); EOS# 0.07 X1000 (0.0-0.7); EOS% 0.8 % (0.0-10.0); HEMATOCRIT 29.1 % (42.0-52.0); HEMOGLOBIN 9.4 g/dL (14.0-18.0); IMM GRAN# 0.11 X1000 (0.0-0.04); IMM GRAN% 1.2 % (0.0-0.5); LYMPH# 0.82 X1000 (1.2-3.4); LYMPH% 9.1 % (20.5-51.1); MCH 31.8 PG (27-31); MCHC 32.3 g/dL (33-37); MCV 98.3 FL (81-99); MONO# 0.79 X1000 (0.11-0.59); MONO% 8.7 % (1.7-9.3); MPV 11.9 FL (7.4-10.4); NEUT# 7.23 X1000 (1.4-6.5); NEUT% 79.9 % (42.2-75.2); PLT 183 X1000 (130-400); RBC 2.96 XMIL (4.7-6.1); RDW 14.5 % (11.5-14.5); WBC 9.05 X1000 (4.8-10.8)
[2018-06-13 07:16] LABS: LYMPHS 4 % (21-51); MONO 8 % (1-9); SEGS 86 % (42-75)
[2018-06-13 07:22] LABS: AGAP 11; ALB/GLOB RATIO 0.6; ALBUMIN 2.1 g/dL (3.5-5.0); ALKALINE PHOSPHATASE 197 U/L (32-122); BUN 7 mg/dL (8-22); CALCIUM 7.5 mg/dL (8.8-10.2); CHLORIDE 98 mmol/L (98-107); COSMO 269; CREATININE 0.5 mg/dL (0.7-1.2); ESTIMATED GFR > 60; GLUCOSE 107 mg/dL (70-104); GOT 60 U/L (10-34); GPT 85 U/L (10-44); POTASSIUM 3.3 mmol/L (3.5-5.1); SODIUM 135 mmol/L (136-145); TCO2 26 mmol/L (25-35); TOTAL BILIRUBIN 0.73 mg/dL (0.20-1.00); TOTAL PROTEIN 5.4 g/dL (6.3-8.3)
--- NOTE | 2018-06-13 08:28 | GENERAL SURGERY PROGRESS NOTE ---
DATE: 06/12/2018 SUBJECTIVE: The patient is doing well. No new complaints. He is eating and not having much pain. OBJECTIVE: Vital Signs: He is afebrile. Vital signs are stable. General: He is awake, alert, and oriented x3. No acute distress. Gastrointestinal: Soft, nontender, nondistended. Incisions clean, dry, and intact. Laboratory: None today. ASSESSMENT AND PLAN: An 88-year-old male status post open cholecystectomy for acute cholecystitis. He is also recovering from gram-negative darrin bacteremia and has a left arm deep venous thrombosis. Overall, he appears stable and ready for discharge back to his halfway. He will need to have his skin clips removed within the next week, between 06/15/2018 and 06/19/2018. cc: Miguel De Anda MD
[2018-06-13] MEDS: KEPPRA PO SCH ×2 (08:49→20:53)
[2018-06-13] MEDS: ASPIRIN EC PO SCH (08:50)
[2018-06-13] MEDS: FOLIC ACID PO SCH (08:50)
[2018-06-13] MEDS: LASIX PO SCH (08:50)
[2018-06-13] MEDS: FLONASE NAS SCH (08:50)
[2018-06-13] MEDS: NAMENDA PO SCH (08:50)
[2018-06-13] MEDS: PERICOLACE PO SCH ×2 (08:50→20:54)
[2018-06-13] MEDS: TOPROL XL PO SCH (08:50)
[2018-06-13] MEDS ORDERED: CALMOSEPTINE OINTMENT TOP PRN (09:40)
--- NOTE | 2018-06-13 14:37 | INFECTIOUS DISEASE PROGRESS NO ---
DATE: 06/13/2018 PRESENT ILLNESS: The patient has an E coli bacteremia originated from his gallbladder inflammation. He has undergone an open cholecystectomy. He had a mild transaminitis and was switched from Rocephin to cefepime. The patient has a pacemaker in place. The patient does have a clot in his left arm, which is the reason why it is swollen. MEDICATIONS: The patient is on cefepime. He has had 7 days of antibiotic treatment with day 1 being the first day that the repeat blood cultures were sterile. PHYSICAL EXAMINATION: Vital Signs: Temperature is 98.4 degrees, pulse 96, respirations 22, blood pressure is 135/70. General: This is a chronically ill-appearing, lethargic, elderly male. He is in no acute distress. Head, eyes, ears, nose and throat: No drainage noted from the nose or ears. He did open his eyes when I talked to him, but he did not talk back. Neck: No stiffness. Lungs: Clear to auscultation. Cardiovascular: Heart rate is regular. Thorax: The patient has a left-sided pacemaker in place. The site is not more swollen than usual, and it is not erythematous or tender. Neurologic: Today, the patient is lethargic. He is slightly arousable. He did not carry on a conversation. Abdomen: Abdomen was soft. It was not tender to light palpation. Both incisions are intact. Integument: No rash noted. Extremities: The patient's left arm is swollen. LAB AND RADIOLOGY: Today, here is no radiology study. Lab tests include the following: CBC shows a white count of 9050, hemoglobin 9.4, and platelet count 183,000. Creatinine is 0.5. GFR is greater than 60. Alkaline phosphatase is 197. Urine culture is negative. ASSESSMENT AND PLAN: Patient has an Escherichia coli bacteremia, which originated from his infected gallbladder. I plan to treat him for 2 weeks; he has already had 1 week and will require another week of cefepime. After that, the patient will be put on amoxicillin 500 mg oral every 8 hours for 4 more weeks to complete a 6-week treatment course because the patient's pacemaker could have become infected while the patient was bacteremic. COMORBIDITIES: The patient's comorbidities reveals he is elderly, he has a pacemaker, he has a seizure disorder and he has developed a left upper extremity deep venous thrombosis. cc: Todd Melendrez MD
--- NOTE | 2018-06-13 18:09 | PROGRESS NOTE ---
DATE: 06/13/2018 SUBJECTIVE: He is actually feeling better, doing better. I think the plan is to try and get him to assisted living at [facility] under hospice care. OBJECTIVE: Vital signs: Temperature 97.9 degrees, pulse 90, respirations 22, blood pressure 120/60. HEENT: Pupils are equal and round. Lungs: Clear in all lung ardon. Cardiovascular: Regular rhythm and rate without murmur or S3. Abdomen: Soft. Skin: Warm and dry. Note the plan is to go to [facility] with hospice care in the morning. I think we are ready. He has done exercises in the bed, but he has not been able to bear any weight. LABORATORY DATA: Yesterday: White count 9050, hematocrit is 29, platelet count is 183,000. Sodium 135, potassium 3.3, chloride 98, BUN 7, creatinine 0.5, blood sugar is 107, AST is 60, ALT was 85 which has come down nicely, albumin is 2.1 so. ASSESSMENT AND PLAN: 1. Status post open cholecystectomy for acute cholecystitis, suffered Escherichia coli bacteremia. He is doing better. 2. Deep venous thrombosis of the left arm. He is on Xarelto. 3. Deconditioning and weakness. Continue physical therapy. 4. Discontinue his Ventura catheter when he is voiding without difficulty. 5. Continue p.o. intake and encourage nutrition. The plan is to go tomorrow to [facility] with hospice care. We will see if we can get that set up for him. I think he can stop his antibiotic, so we will stop cefepime. cc: Ben Last MD
[2018-06-13] MEDS: XARELTO PO SCH (20:53)
[2018-06-13] MEDS: MILK OF MAGNESIA PO SCH (20:53)
[2018-06-14] MEDS: PROTONIX PO SCH (06:56)
[2018-06-14] MEDS: FLONASE NAS SCH (10:36)
[2018-06-14] MEDS: PERICOLACE PO SCH (10:37)
[2018-06-14] MEDS: NAMENDA PO SCH (10:38)
[2018-06-14] MEDS: TOPROL XL PO SCH (10:38)
[2018-06-14] MEDS: KEPPRA PO SCH (10:38)
[2018-06-14] MEDS: LASIX PO SCH (10:38)
[2018-06-14] MEDS: ASPIRIN EC PO SCH (10:39)
[2018-06-14] MEDS: FOLIC ACID PO SCH (10:39)
[2018-06-14] MEDS ORDERED: MAXIPIME 2 GM in NS 100 ML IV SCH (13:15)
--- NOTE | 2018-06-14 13:44 | INFECTIOUS DISEASE PROGRESS NO ---
DATE: 06/14/2018 The patient is going home today on hospice care. He will receive amoxicillin 500 mg p.o. every 8 hours for another week to complete a 2-week treatment course for the patient's bacteremia. cc: Todd Melendrez MD
--- NOTE | 2018-06-14 13:57 | DISCHARGE SUMMARY ---
ADMISSION DATE: 06/02/2018 DISCHARGE DATE: 06/14/2018 HISTORY: The patient was admitted for fever and abdominal pain and elevated liver enzymes. CT scan suggested cholecystitis. Also, there was some question of dilatation of the inner hepatic biliary tree. Surgery was consulted, and he was moved to the unit. Cholangiogram intraoperatively showed no evidence of retained stones. Gallbladder did look like it was infected, irritated and inflamed. The patient seemed to improve. Liver enzymes seemed to improve following his surgery. Prior to surgery, his family had been exploring going to hospice at assisted living. PAST MEDICAL HISTORY: 1. Pacemaker placement. 2. Appendectomy. 3. Otherwise fairly unremarkable. HOSPITAL COURSE: The patient was eating. His appetite was not really good. He has not been able to get out of bed. He is too weak, but PT was working on his extremity strength. It was felt like he was ready go back to assisted living on 06/14/2018. DISCHARGE MEDICATIONS: 1. Tylenol 650 mg q.6 hours p.r.n. 2. Aspirin 81 mg a day. 3. We will stop the cefepime, and we will give him amoxicillin 500 mg p.o. 3 times a day for another 7 days. 4. Folic Acid 0.4 mg a day. 5. Lasix 20 mg p.o. every morning. 6. Keppra 750 mg p.o. b.i.d. 7. Milk of magnesia 30 mL at bedtime. 8. Namenda 5 mg daily. 9. Toprol-XL 25 mg every morning. 10. Protonix 40 mg a day. 11. Xarelto 20 mg at bedtime. 12. Marysol-Colace 1 b.i.d. POSTOPERATIVE COURSE: He had some swelling in his left arm. Ultrasound revealed DVT in the arm including the axillary vein. We will continue Xarelto probably for a total of 6 months. cc: Ben Last MD
[2018-06-14 16:58] VITALS: BP 126/59
== END 2018-06-14 19:28 | disposition hospice, home (50) | DRG 853 ==
LOC: SUPCPDRO → ED 16:06 → SUATTDRO 20:39 → ICU 20:39 → 4N 06-08 00:38
PROVIDERS: ATTEND Emergency Medicine
CPT/HCPCS: 36415; 51702; 71010; 71045; 74177; 74300; 80048; 80053; 81001; 82378; 82550; 82607; 82746; 83605; 83690; 83735; 83880; 84100; 84439; 84443; 84484; 85025; 85027; 85610; 85730; 86301; 86304; 86850; 86900; 86901; 87040; 87045; 87046; 87077; 87088; 87186; 87275; 87276; 87804; 88304; 93005; 93971; 94762; 96361; 96365; 96367; 96375; 97110; 97161; 97530; 99285; 99291; A9270; C1751; C9113; J0131; J0330; J0360; J0692; J0696; J1100; J1650; J2020; J2270; J2405; J2543; J3010; J3370; J3475; J7030; J7040; J7120; Q9966; Q9967; S0164